=== PATIENT | male | born 1945 | race Caucasian/White ===

== ENCOUNTER 2016-12-06 10:51 | Outpatient (CLI) | payer MEDICARE, OTHER | END 2016-12-06 10:52 | DX: E11.9 Type 2 diabetes mellitus without complications (principal) ==

== ENCOUNTER 2017-01-14 13:15 | Outpatient (CLI) | payer MEDICARE, OTHER ==
[2017-01-14] MEDS ORDERED: ALBUTEROL NEB 2.5 MG/3 ML INH ONE (13:51)
== END 2017-01-14 13:16 | disposition home or self-care (01) ==
DX: R06.00 Dyspnea, unspecified (principal); Z87.891 Personal history of nicotine dependence
CPT/HCPCS: 94060; J7613

== ENCOUNTER 2017-02-13 12:58 | Outpatient (CLI) | payer MEDICARE, OTHER ==
--- NOTE | 2017-02-13 22:09 | MRI Report ---
EXAM: MRI LUMBAR SPINE WITHOUT CONTRAST EXAM DATE: 02/13/2017 01:09 PM. CLINICAL HISTORY: LOW BACK PAIN. COMPARISON: Prior plain film lumbar spine 06/05/2013, prior MRI lumbar spine study 12/20/2011. TECHNIQUE: Multiplanar, multisequence T1-weighted and fluid-sensitive sequences of the lumbar spine f rom T12 to S1 without contrast. Other: None. Findings: Relevant images are indicated (image number, series number). Again seen 5 lmj-bbh-jmibsvq lumbar vertebrae are present. There is no suspicious marrow signal. Agai n seen lower thoracic, lumbar spine dextroscoliosis approximately 24 degrees convex right apex at the L2 level. Conus terminates at L1, no abnormal lumbar cord signal. There is no lumbar paraspinal mass or collection. The visualized bilateral sacroiliac joint demonstrates moderate degenerative changes. Surrounding ske letal muscle unremarkable. Chronic advanced multilevel lower lumbar spine posterior facet bony hypert rophic changes. Also prominent right ventral lateral disk osteophyte extrusion is seen primarily L4-L 5, L5-S1 levels. These were also present previously by MRI lumbar spine 12/20/2011, although appear a t least mildly progressive. Partly seen T11-T12: Mild disk desiccation, no canal stenosis or neural foramina narrowing. T12-L1: Moderate diffuse desiccation, minimal posterior disk bulge without canal stenosis or signific ant neural foraminal narrowing. L1-L2: Moderate to marked degenerative change, small posterior disk osteophyte bulge accentuated at t he foraminal spaces, stenosis. There is moderate left, mild right neural foramina narrowing. L2-L3: disk degenerative change, slight grade 1 retrolisthesis. Mild, moderate Modic type II endplate change. There is moderate canal stenosis, moderate to marked posterior facet degenerative change lef t greater than right. There is marked left, moderate to marked right neural foramina narrowing. There is likely contact left L2 nerve root. The degree of degenerative change appears progressive from MRI lumbar spine 12/20/2011, particularly on the left. L3-L4: Mild to moderate disk desiccation, minimal canal stenosis. Moderate posterior facet degenerati ve change, moderate left and right neural foramina narrowing. L4-L5: Moderate disk desiccation, small posterior disk osteophyte bulge, marked posterior facet degen erative change, appears progressive with ligamentum flavum hypertrophy. Moderate canal stenosis. Ther e is marked left and right neural foramina narrowing also appears similar to very slightly progressiv e in the interval bilaterally. There is suspected contact bilateral L4 nerve roots. L5-S1: Marked degenerative change, moderate Modic type II endplate change. Small posterior broad-base d disk osteophyte complex, no canal stenosis. Moderate, marked posterior facet degenerative change. T here is moderate left, moderate to marked right neural foramina narrowing, appears stable in the inte rval. Remaining upper sacral canal negative. Impressions: 1. Advanced similar to progressive multilevel lower thoracic, lumbar spine spondylosis, superimposed 24 degree lower thoracic, lumbar spine dexterous scoliosis as detailed. No suspicious marrow lesions, no abnormal lumbar cord signal. Advanced multilevel chronic posterior facet hypertrophic changes as detailed, pertinent degenerative levels below. 2. L2-L3: Moderate degenerative canal stenosis, moderate to marked degenerative bilateral neural fora mayra narrowing left worse than right, may contribute a left L2 radiculopathy. 3. L3-L4: Normal degenerative canal stenosis with moderate degenerative bilateral neural foramina leonora rowing, no apparent nerve root contact. 4. L4-L5: Moderate degenerative canal stenosis, marked degenerative bilateral neural foramina narrowi ng similar to slightly progressive in the interval, may contribute bilateral L4 radiculopathy. 5. L5-S1: Moderate to marked degenerative bilateral neural foramina narrowing right greater than left , appears stable in the interval although may contribute a right L5 radiculopathy. 6. Milder or no significant degenerative changes of the remaining lower thoracic, lumbar spine levels as detailed. Comment: The following findings are so common in adults without low back pain that while we report th eir presence, they must be interpreted with caution and in the context of the clinical situation. (Re jayne Jones et al, Spine 2001) Prevalence of findings in patients without low back pain: Disk degeneration (any evidence): 92% Disk desiccation/T2 signal loss: 83% Disk height loss: 56% Disk bulge: 64% Disk protrusion: 32% Annular tear/high intensity zone: 38% [facility] Referring Provider Line: [phone] SITE ID: [id number]
== END 2017-02-13 12:59 | disposition home or self-care (01) ==
LOC: DI 12:58
PROVIDERS: ATTEND Acupuncturist
DX: M48.06 Spinal stenosis, lumbar region (principal); M48.07 Spinal stenosis, lumbosacral region; M47.894 Other spondylosis, thoracic region; M47.896 Other spondylosis, lumbar region; M41.86 Other forms of scoliosis, lumbar region
CPT/HCPCS: 72148

== ENCOUNTER 2017-03-02 10:06 | Outpatient (CLI) | payer MEDICARE, OTHER ==
[2017-03-02 13:19] LABS: BASOPHILS # (AUTO) 0.2 10^3/uL (0.0-0.1); BASOPHILS % (AUTO) 1.8 %; EOSINOPHILS # (AUTO) 0.5 10^3/uL (0.0-0.7); EOSINOPHILS % (AUTO) 5.6 %; HCT - HEMATOCRIT 41.1 % (42.0-52.0); LYMPHOCYTES % (AUTO) 34.2 %; MEAN CORPUSCULAR HEMOGLOBIN 30.3 pg (27.0-31.0); MEAN CORPUSCULAR HGB CONC 34.1 g/dL (32.0-36.0); MEAN CORPUSCULAR VOLUME 88.9 fL (80.0-94.0); MEAN PLATELET VOLUME 9.9 fL (7.4-11.4); MONOCYTES # (AUTO) 0.6 10^3/uL (0.0-1.0); MONOCYTES % (AUTO) 6.8 %; NEUTROPHILS # (AUTO) 4.5 10^3/uL (1.5-6.6); NEUTROPHILS % (AUTO) 51.6 %; RED BLOOD COUNT 4.62 10^6/uL (4.70-6.10); RED CELL DISTRIBUTION WIDTH 13.2 % (12.0-15.0); UNCORRECTED WHITE BLOOD COUNT 8.8 x10^3/uL; WHITE BLOOD COUNT 8.8 x10^3/uL (4.8-10.8)
[2017-03-02 13:43] LABS: ALBUMIN/GLOBULIN RATIO 1.3 (1.0-2.2); BILIRUBIN,TOTAL 0.5 mg/dL (0.2-1.0); BUN - BLOOD UREA NITROGEN 16 mg/dL (6-20); CALCIUM 8.7 mg/dL (8.5-10.3); CARBON DIOXIDE - CO2 26 mmol/L (21-32); CHLORIDE 106 mmol/L (101-111); CHOL/HDL RATIO 4.9 (<5.0); CHOLESTEROL 183 mg/dL; CREATININE 1.4 mg/dL (0.6-1.2); GFR - MDRD 50 (>89); GLUCOSE 158 mg/dL (70-100); HDL CHOLESTEROL 37 mg/dL; LDL/HDL RATIO 2.9 (<3.6); POTASSIUM 4.1 mmol/L (3.5-5.0); SODIUM 140 mmol/L (135-145); TOTAL PROTEIN 6.4 g/dL (6.7-8.2); TRIGLYCERIDES 202 mg/dL; VLDL CHOLESTEROL 40 mg/dL
[2017-03-02 14:15] LABS: HEMOGLOBIN A1C 1.04 g/dL
== END 2017-03-02 10:07 | disposition home or self-care (01) ==
LOC: LAB.WCP 10:06
PROVIDERS: ATTEND Family Medicine
DX: E11.9 Type 2 diabetes mellitus without complications (principal); Z12.5 Encounter for screening for malignant neoplasm of prostate; E03.9 Hypothyroidism, unspecified; N18.9 Chronic kidney disease, unspecified; I25.10 Atherosclerotic heart disease of native coronary artery without angina pectoris; R94.5 Abnormal results of liver function studies; E78.5 Hyperlipidemia, unspecified; I12.9 Hypertensive chronic kidney disease with stage 1 through stage 4 chronic kidney disease, or unspecified chronic kidney disease
CPT/HCPCS: 36415; 80053; 80061; 83036; 85025; G0103; 82043; 84153

== ENCOUNTER 2017-11-20 09:00 | Outpatient (CLI) | payer MEDICARE, OTHER ==
[2017-11-20 13:40] LABS: BILIRUBIN,URINE NEGATIVE (NEGATIVE); GLUCOSE, URINE (UA) 250 mg/dL (NEGATIVE); KETONES,URINE (UA) NEGATIVE (NEGATIVE); LEUKOCYTE ESTERASE, URINE NEGATIVE (NEGATIVE); NITRITE,URINE NEGATIVE (NEGATIVE); OCCULT BLOOD,URINE NEGATIVE (NEGATIVE); PROTEIN,URINE NEGATIVE (NEGATIVE); UROBILINOGEN,URINE 0.2 (NORMAL) E.U./dL (NORMAL)
[2017-11-20 13:41] LABS: CLARITY,URINE CLOUDY (CLEAR)
[2017-11-20 14:07] LABS: RBC,URINE None Seen /HPF (0-5)
[2017-11-20 14:08] LABS: AMORPHOUS SEDIMENT,UR Marked /LPF; BACTERIA,URINE Few /HPF (None Seen); SQUAMOUS EPITHELIAL CELL,UR RARE Squamous (<= Few)
[2017-11-20 14:08] LABS: HB2 TOTAL 16.1 g/dL; HEMOGLOBIN A1C 1.03 g/dL
[2017-11-20 14:14] LABS: ALBUMIN 3.6 g/dL (3.2-5.5); ALBUMIN/GLOBULIN RATIO 1.1 (1.0-2.2); BILIRUBIN,TOTAL 0.6 mg/dL (0.2-1.0); CALCIUM 8.7 mg/dL (8.5-10.3); CREATININE 1.4 mg/dL (0.6-1.2); PHOSPHORUS 3.5 mg/dL (2.5-4.6); TOTAL PROTEIN 6.8 g/dL (6.7-8.2); URIC ACID 6.5 mg/dL (2.6-7.2)
[2017-11-20 14:17] LABS: CHOLESTEROL 170 mg/dL; HDL CHOLESTEROL 34 mg/dL; LDL CHOLESTEROL,CALCULATED 94 mg/dL; LDL/HDL RATIO 2.8 (<3.6); VLDL CHOLESTEROL 42 mg/dL
[2017-11-20 14:47] LABS: BASOPHILS # (AUTO) 0.1 10^3/uL (0.0-0.1); BASOPHILS % (AUTO) 1.1 %; EOSINOPHILS # (AUTO) 0.5 10^3/uL (0.0-0.7); EOSINOPHILS % (AUTO) 5.8 %; HGB - HEMOGLOBIN 14.7 g/dL (14.0-18.0); LYMPHOCYTES # (AUTO) 3.1 10^3/uL (1.5-3.5); LYMPHOCYTES % (AUTO) 37.3 %; MEAN CORPUSCULAR HEMOGLOBIN 30.2 pg (27.0-31.0); MEAN CORPUSCULAR HGB CONC 34.3 g/dL (32.0-36.0); MEAN PLATELET VOLUME 9.8 fL (7.4-11.4); MONOCYTES # (AUTO) 0.8 10^3/uL (0.0-1.0); MONOCYTES % (AUTO) 9.3 %; NEUTROPHILS # (AUTO) 3.9 10^3/uL (1.5-6.6); NEUTROPHILS % (AUTO) 46.5 %; PLT - PLATELET COUNT 218 10^3/uL (130-450); RED BLOOD COUNT 4.87 10^6/uL (4.70-6.10); RED CELL DISTRIBUTION WIDTH 12.9 % (12.0-15.0); WHITE BLOOD COUNT 8.3 x10^3/uL (4.8-10.8)
[2017-11-21 12:36] LABS: HEPATITIS C ANTIBODY NON-REACTIVE (NON-REACTIVE)
[2017-11-21 13:33] LABS: HEPATITIS B SURFACE ANTIGEN NON-REACTIVE (NON-REACTIVE)
== END 2017-11-20 09:01 | disposition home or self-care (01) ==
LOC: LAB.WCP 09:00
PROVIDERS: ATTEND Family Medicine
DX: I12.9 Hypertensive chronic kidney disease with stage 1 through stage 4 chronic kidney disease, or unspecified chronic kidney disease (principal); E11.22 Type 2 diabetes mellitus with diabetic chronic kidney disease; N18.3 Chronic kidney disease, stage 3 (moderate); Z20.5 Contact with and (suspected) exposure to viral hepatitis
CPT/HCPCS: 36415; 80053; 80061; 81001; 82043; 82306; 83036; 83721; 83970; 84100; 84550; 85025; 86803; 87086; 87340; 87389

== ENCOUNTER 2017-12-16 13:12 | Outpatient (CLI) | payer MEDICARE, OTHER ==
--- NOTE | 2017-12-17 11:31 | MRI Report ---
EXAM: MRI LUMBAR SPINE WITHOUT CONTRAST EXAM DATE: 12/16/2017 01:30 PM. CLINICAL HISTORY: 72-year-old with similar history of chronic low back pain radiating into bilateral thighs and legs COMPARISON: MR lumbar spine 02/13/2017. TECHNIQUE: Multiplanar, multisequence T1-weighted and fluid-sensitive sequences of the lumbar spine f rom T12 to S1 without contrast. Other: None. FINDINGS: Spinal Cord: The conus terminates at L1-L2. The conus medullaris and cauda equina are unremarkable. Alignment: There is 18 degrees of dextroconvex scoliotic curvature centered at L2. There is 5 mm of r ight lateral subluxation of L2 on L3. There is 2 mm of grade 1 retrolisthesis of L1 on L2, L2 on L3, L3 on L4, and L5 on S1. Bone Marrow: Five ptw-nxc-qbwscet lumbar vertebral bodies are assumed. No acute fracture. There is Mo dic type II changes seen at L1-L2, L2-L3, and L5-S1. There is endplate edema seen at L1-L2, L2-L3, L3 -L4, and L4-L5 likely degenerative in nature. A vertebral hemangioma is seen. No marrow replacing les ion seen. Disk Levels/Facets: T12-L1: Mild endplate degenerative change, Schmorl's node ridging, mild loss of disk height, and disk desiccation. Small posterior disk bulge and bilateral facet disease. No spinal canal stenosis or ella ral foraminal narrowing. L1-L2: Moderate degenerative change, Schmorl's node compression, moderate loss of disk, and disk santhosh ccation. Small posterior disk bulge, ligamentum flavum thickening, arthritic facet disease, and promi nent dorsal epidural fat. Mild spinal canal stenosis and effacement of the left lateral recess. Mild to moderate bilateral neural foraminal narrowing. L2-L3: Moderate degenerative change, Schmorl's node formation, moderate loss of disk height and disk desiccation. Small posterior disk bulge, ligamentum flavum thickening, arthritic facet disease, and p rominent dorsal epidural fat. Moderate spinal canal stenosis. Moderate right and severe left neural f oraminal narrowing. L3-L4: Mild loss of disk height and disk desiccation. Small posterior disk bulge, ligamentum flavum t hickening, arthritic facet disease, and prominent dorsal epidural fat. Mild spinal canal stenosis. Mi ld to moderate bilateral neural foramina narrowing. L4-L5: Mild endplate degenerative change, Schmorl's node formation, mild loss of disk height, and dis k desiccation. Small posterior disk bulge, ligamentum flavum thickening, facet disease, and prominent dorsal epidural fat. Mild to moderate spinal canal stenosis and effacement of the lateral recesses. Severe right and moderate left neural foraminal narrowing. L5-S1: Mild endplate degenerative change, Schmorl's node formation, moderate loss of disk height, and disk desiccation. Small central disk protrusion. Bilateral arthritic facet disease. Effacement of th e recesses with contact of the bilateral S1 nerve roots, greater on the left. Mild to moderate bilate ral neural foraminal narrowing. Musculature: Mild fatty atrophy of the multifidus muscles. Severe edema within the subcutaneous tissu es of the low back. Other: The partially visualized retroperitoneum is unremarkable. Dilatation of the right common iliac artery measuring up to 19.5 mm similar to 02/13/2017. IMPRESSION: 1. There is 18 degrees of dextroconvex scoliotic curvature centered at L2. There is 5 mm of right lat eral subluxation of L2 on L3. 2. There is 2 mm of grade 1 retrolisthesis of L1 on L2, L2 on L3, L3 on L4, and L5 on S1. 3. Multilevel degenerative changes that appear similar to MRI 02/13/2017. L1-L2: Mild spinal canal stenosis and effacement of the left lateral recess. Mild to moderate bilater al neural foraminal narrowing. L2-L3: Moderate spinal canal stenosis. Moderate right and severe left neural foraminal narrowing. L3-L4: Mild spinal canal stenosis. Mild to moderate bilateral neural foramina narrowing. L4-L5: Mild to moderate spinal canal stenosis and effacement of the lateral recesses. Severe right an d moderate left neural foraminal narrowing. L5-S1: Effacement of the recesses with contact of the bilateral S1 nerve roots, greater on the left. Mild to moderate bilateral neural foraminal narrowing. 4. Enlargement of the right common iliac artery measuring up to 19.5 mm similar to 02/13/2017. Comment: The following findings are so common in adults without low back pain that while we report th eir presence, they must be interpreted with caution and in the context of the clinical situation. (Re jayne Jones et al, Spine 2001) Prevalence of findings in patients without low back pain: Disk degeneration (any evidence): 92% Disk desiccation/T2 signal loss: 83% Disk height loss: 56% Disk bulge: 64% Disk protrusion: 32% Annular tear/high intensity zone: 38% [facility] Referring Provider Line: [phone] SITE ID: [id number]
== END 2017-12-16 13:13 | disposition home or self-care (01) ==
LOC: DI 13:12
PROVIDERS: ATTEND Neurological Surgery
DX: M51.36 Other intervertebral disc degeneration, lumbar region (principal); M47.896 Other spondylosis, lumbar region; M41.86 Other forms of scoliosis, lumbar region; M51.46 Schmorl's nodes, lumbar region; M43.16 Spondylolisthesis, lumbar region
CPT/HCPCS: 72148

== ENCOUNTER 2018-04-13 15:26 | Outpatient (CLI) | payer MEDICARE, OTHER ==
--- NOTE | 2018-04-13 18:11 | Ultrasound Report ---
Procedure Date: 04/13/2018 Accession Number: [id number] / [id number] Procedure: US - Duplex Ext Veins Right CPT Code: FULL RESULT: EXAM: RIGHT LOWER EXTREMITY VENOUS ULTRASOUND EXAM DATE: 04/13/2018 05:46 PM. CLINICAL HISTORY: RT LEG PAIN AND SWELLING. COMPARISON: None. TECHNIQUE: Real-time sonographic vascular imaging was performed by the silk folder through the lower extremity utilizing both color-flow and Doppler spectral analysis. Multiple dental detail representative static images were saved for review. FINDINGS: Common Femoral Vein (CFV): Normal. CFV-GSV Junction: Normal. Profunda Femoral Vein (PFV): Normal. Femoral Vein (FV) Prox: Normal. Femoral Vein (FV) Mid: Normal. Femoral Vein (FV) Dist: Normal. Popliteal Vein: Normal. Posterior Tibial Veins: Normal. Peroneal Veins: Normal. Contralateral Side CFV: Normal. Other: There is a small right popliteal fossa cyst measuring 2.4 x 0.7 x 1.1 cm. IMPRESSION: No evidence for deep venous thrombosis. [facility]
== END 2018-04-13 15:27 | disposition home or self-care (01) ==
LOC: DI 15:26
PROVIDERS: ATTEND Physician Assistant
DX: M79.604 Pain in right leg (principal)

== ENCOUNTER 2018-06-13 15:00 | Outpatient (CLI) | payer MEDICARE, OTHER ==
--- NOTE | 2018-06-14 16:57 | Ultrasound Report ---
Reason: LEG PAIN, RIGHT Procedure Date: 06/13/2018 Accession Number: [id number] / [id number] Procedure: US - Ankle Brachial Index CPT Code: FULL RESULT: EXAM: ANKLE BRACHIAL INDEX. EXAM DATE: 06/13/2018 04:59 PM. CLINICAL HISTORY: Leg pain, right. COMPARISON: None. TECHNIQUE: Duplex Doppler. FINDINGS: On the right side, posterior tibial peak systolic velocity is 80.4 cm/s, waveform is biphasic. Dorsalis pedis peak systolic velocity is 80.4, waveform is biphasic. On the left side posterior tibial peak systolic velocity is 101.4, waveform is biphasic. The dorsalis pedis peak systolic velocity is 77.3, with a monophasic waveform. On the right side the brachial artery systolic pressure is 129 in the posterior tibial artery pressure is 129. The ankle arm index is 1.0. On the left side brachial artery pressure is 135, and the posterior tibial is 119. The ankle arm index is 0.88. IMPRESSION: 1. Right side ankle brachial index is 1.0. 2. Left side ankle brachial index is 0.88. [facility]
== END 2018-06-13 15:01 | disposition home or self-care (01) ==
LOC: DI 15:00
PROVIDERS: ATTEND Family Medicine
DX: M79.604 Pain in right leg (principal)
CPT/HCPCS: 93922

== ENCOUNTER 2019-04-17 08:00 | Outpatient (CLI) | payer MEDICARE, OTHER ==
[2019-04-17 12:39] LABS: BASOPHILS # (AUTO) 0.1 10^3/uL (0.0-0.1); BASOPHILS % (AUTO) 1.4 %; EOSINOPHILS # (AUTO) 0.4 10^3/uL (0.0-0.7); EOSINOPHILS % (AUTO) 4.3 %; LYMPHOCYTES # (AUTO) 3.4 10^3/uL (1.5-3.5); LYMPHOCYTES % (AUTO) 36.5 %; MEAN CORPUSCULAR HEMOGLOBIN 29.5 pg (27.0-31.0); MEAN CORPUSCULAR HGB CONC 32.2 g/dL (32.0-36.0); MEAN CORPUSCULAR VOLUME 91.8 fL (80.0-94.0); MONOCYTES # (AUTO) 0.7 10^3/uL (0.0-1.0); MONOCYTES % (AUTO) 7.6 %; NEUTROPHILS # (AUTO) 4.6 10^3/uL (1.5-6.6); NEUTROPHILS % (AUTO) 49.8 %; PLT - PLATELET COUNT 212 10^3/uL (130-450); RED BLOOD COUNT 4.74 10^6/uL (4.70-6.10); RED CELL DISTRIBUTION WIDTH 13.1 % (12.0-15.0); WHITE BLOOD COUNT 9.3 x10^3/uL (4.8-10.8)
[2019-04-17 13:48] LABS: BUN - BLOOD UREA NITROGEN 18 mg/dL (6-20); CALCIUM 9.1 mg/dL (8.5-10.3); CARBON DIOXIDE - CO2 28 mmol/L (21-32); CHLORIDE 107 mmol/L (101-111); CREATININE 1.5 mg/dL (0.6-1.2); GFR - MDRD 46 (>89); GLUCOSE 109 mg/dL (70-100); SODIUM 145 mmol/L (135-145)
[2019-04-17 13:49] LABS: ALBUMIN 3.7 g/dL (3.2-5.5); ALBUMIN/GLOBULIN RATIO 1.2 (1.0-2.2); ALKALINE PHOSPHATASE 74 IU/L (42-121); ALT ALANINE AMINOTRANSFERASE 46 IU/L (10-60); AST ASPARTATE AMINOTRANSFERASE 44 IU/L (10-42); BILIRUBIN,TOTAL 0.5 mg/dL (0.2-1.0); CHOL/HDL RATIO 3.7 (<5.0); CHOLESTEROL 143 mg/dL; HDL CHOLESTEROL 39 mg/dL; LDL CHOLESTEROL,CALCULATED 67 mg/dL; LDL/HDL RATIO 1.7 (<3.6); TOTAL PROTEIN 6.7 g/dL (6.7-8.2); VLDL CHOLESTEROL 37 mg/dL
== END 2019-04-17 23:59 | disposition home or self-care (01) ==
LOC: LAB.N 08:00
PROVIDERS: ATTEND Family Medicine
DX: I10 Essential (primary) hypertension (principal); E78.5 Hyperlipidemia, unspecified; E03.9 Hypothyroidism, unspecified
CPT/HCPCS: 36415; 80053; 80061; 83721; 84443; 85025

== ENCOUNTER 2019-04-24 08:00 | Outpatient (CLI) | payer MEDICARE, OTHER ==
[2019-04-24 19:16] LABS: THYROID STIMULATING HORMONE 3.21 uIU/mL (0.34-5.60)
[2019-04-24 19:18] LABS: FREE T4 (FREE THYROXINE) 0.99 ng/dL (0.58-1.64)
== END 2019-04-24 08:01 | disposition home or self-care (01) ==
LOC: LAB.N 08:00
PROVIDERS: ATTEND Family Medicine
DX: R94.6 Abnormal results of thyroid function studies (principal)
CPT/HCPCS: 36415; 84439; 84443; 84481; 86800

== ENCOUNTER 2019-06-14 14:30 | Outpatient (CLI) | payer MEDICARE, OTHER ==
[2019-06-14 20:12] LABS: HB2 TOTAL 14.2 g/dL; HEMOGLOBIN A1C 0.65 g/dL; HEMOGLOBIN A1C % 6.3 % (4.6-6.2)
== END 2019-06-14 14:40 | disposition home or self-care (01) ==
LOC: LAB.N 14:30
PROVIDERS: ATTEND Neurological Surgery
DX: Z01.812 Encounter for preprocedural laboratory examination (principal); E11.9 Type 2 diabetes mellitus without complications
CPT/HCPCS: 36415; 83036

== ENCOUNTER 2019-11-06 12:51 | Outpatient (CLI) | payer MEDICARE, OTHER ==
[~2019-11-06 12:51] MED LIST: ALBUTEROL NEB 2.5 MG/3 ML INH SCH
== END 2019-11-06 12:52 | disposition home or self-care (01) ==
LOC: RT 12:51
PROVIDERS: ATTEND Internal Medicine Pulmonary Disease
DX: R06.09 Other forms of dyspnea (principal)
CPT/HCPCS: 94060; 94729

== ENCOUNTER 2019-11-15 04:16 | Outpatient (CLI) | payer MEDICARE, OTHER | END 2019-11-15 04:17 | disposition critical access hospital (66) | LOC: EMS 04:16 | PROVIDERS: ATTEND Surgery | DX: R04.0 Epistaxis (principal) | CPT/HCPCS: A0425; A0429 ==

== ENCOUNTER 2019-11-15 04:32 | Emergency (ER) | payer MEDICARE, OTHER ==
[2019-11-15] MEDS ORDERED: SODIUM CHLORIDE 0.9% NAS STA (04:46)
[2019-11-15] MEDS ORDERED: OXYMETAZOLINE HCL 100 SPRAYS BOTTLE NAS STA (04:46)
[2019-11-15] MEDS ORDERED: TRANEXAMIC ACID NAS STA (04:46)
--- NOTE | 2019-11-15 05:16 | ED Physician Documentation ---
History of Present Illness - Stated complaint Stated Complaint: NOSEBLEED - Chief complaint Chief Complaint: Heent - Additonal information Additional information: This is a 73-year-old male who presents with nosebleed. Patient has a history of diabetes, he takes an aspirin daily. He states that the bleeding began around 330, and he held some pressure but it continued. He had a nosebleed several days in the past and ended up having have a Rhino Rocket placed after cautery failed. He denies other easy bleeding or bruising or any other blood thinners Other than aspirin. PD PAST MEDICAL HISTORY - Past Medical History Past Medical History: Yes Cardiovascular: Hypertension Respiratory: None Endocrine/Autoimmune: Type 2 diabetes HEENT: None Psych: None Musculoskeletal: Chronic back pain Derm: None - Past Surgical History Past Surgical History: Yes Cardiovascular: Coronary stent - Present Medications Home Medications: Ambulatory Orders Medication Instructions Recorded Confirmed Aspirin 81 mg PO DAILY 10/23/13 11/15/19 Celecoxib [Celebrex] 100 mg PO DAILY 10/23/13 11/15/19 L. Rhamnosus GG/Inulin [Culturelle 1 each PO DAILY #14 cap.sprink 10/23/13 11/15/19 Capsule] Lisinopril 20 mg PO DAILY 10/23/13 11/15/19 Metformin HCl [Glumetza] 500 mg PO BID 10/23/13 11/15/19 Naproxen 250 mg PO DAILY PRN 10/23/13 11/15/19 Simvastatin 40 mg PO DAILY 10/23/13 11/15/19 Sitagliptin Phosphate [Januvia] 100 mg PO DAILY 10/23/13 11/15/19 - Allergies Allergies/Adverse Reactions: Allergies Allergy/AdvReac Type Severity Reaction Status Date / Time No Known Drug Allergies Allergy Verified 11/15/19 04:47 - Social History Does the pt smoke?: No Smoking Status: Never smoker Does the pt drink ETOH?: No Does the pt have substance abuse?: No - Immunizations Immunizations are current?: No - POLST Patient has POLST: No PD ED PE NORMAL - General General: Alert and oriented X 3 - HEENT HEENT: Other (Nose clamps in place, when they remove there is a trickle of blood from the left nostril. This remained steady until pressure is reapplied. Face is atraumatic.) - Neck Neck: Supple, no meningeal sign - Cardiac Cardiac: RRR, Other (Rate in the 90s to low 100s on my examination.) - Respiratory Respiratory: No respiratory distress, Other (Upper airway noises, otherwise clear to) - Abdomen Abdomen: Soft, Non tender, Non distended - Extremities Extremities: No deformity - Neuro Neuro: Alert and oriented X 3 - Psych Psych: Normal mood, Normal affect Results - Vitals Vitals: Vital Signs - 24 hr 11/15/19 11/15/19 11/15/19 04:36 04:47 05:09 Temperature 37.1 C Heart Rate 103 H 95 91 Respiratory 16 18 18 Rate Blood Pressure 171/76 H 179/69 H 154/62 H O2 Saturation 95 94 94 11/15/19 11/15/19 11/15/19 05:28 06:06 06:55 Temperature 36.7 C Heart Rate 85 79 79 Respiratory 16 16 16 Rate Blood Pressure 155/68 H 158/78 H 174/74 H O2 Saturation 94 94 97 Oxygen O2 Source Room air PD MEDICAL DECISION MAKING - ED course ED course: On arrival patient has ongoing bleeding from his nose, despite having nose clamps which are somewhat sliding out of place. 2 sprays of afrin were placed in each nostril and then a piece of foam anterior packing was wet with 3 mL of TXA solution and placed into the left nostril. Nose clamps were reapplied. After 20 minutes they were removed with very good hemostasis. Pt was observed for 45 minutes without any packing or clamps in place and continued to have no bleeding. He has no symptoms to suggest more nefarious cause of his epistaxis - no other bleeding, no easy bruising, no fevers or night sweats. I discussed care for recurrent bleeds, return precautions, and outpatient follow up and pt was discharged home in good condition. Departure - Departure Disposition: 01 Home, Self Care Clinical Impression: Epistaxis Condition: Good Instructions: ED Nosebleed Follow-Up: ISH RODRIGUEZ MD [Primary Care Provider] - Comments: You were seen today for nosebleed. I am glad that it has stopped. If you have recurrence of the bleed, please place 2 sprays of the Afrin up both nostrils, and then apply the nose clamps for 20 minutes without any disruption of that pressure. If it continues to bleed or if the bleeding is profuse return to the emergency department. Try not to pick at or touch your nose, especially in the next couple days, as you are at higher risk for causing recurrent bleeding. You may use a saline type spray or thin layer of Vaseline just inside the nostrils to help keep the nasal lining moist and prevent bleeding. Discharge Date/Time: 11/15/19 06:59
[2019-11-15 06:59] VITALS: BP 174/74
== END 2019-11-15 06:59 | disposition home or self-care (01) ==
LOC: EDUNIT# → ED 04:32
DX: R04.0 Epistaxis (principal); E11.9 Type 2 diabetes mellitus without complications; I10 Essential (primary) hypertension; G89.29 Other chronic pain; M54.9 Dorsalgia, unspecified; Z95.5 Presence of coronary angioplasty implant and graft; Z79.1 Long term (current) use of non-steroidal anti-inflammatories (NSAID); Z79.82 Long term (current) use of aspirin; Z79.84 Long term (current) use of oral hypoglycemic drugs
CPT/HCPCS: 99281; 99283; A9270

== ENCOUNTER 2019-11-27 10:58 | Outpatient (CLI) | payer MEDICARE, OTHER ==
--- NOTE | 2019-11-27 16:47 | XRAY Report ---
Reason: LOW BACK PAIN Procedure Date: 11/27/2019 Accession Number: [id number] / [id number] Procedure: XRN - Lumbar Spine Complete CPT Code: Final Report FULL RESULT: EXAM: LUMBOSACRAL SPINE RADIOGRAPHY EXAM DATE: 11/27/2019 11:33 AM. CLINICAL HISTORY: Low back pain. COMPARISONS: XR LUMBAR SPINE COMPLETE 06/05/2013, MRI LUMBAR SPINE W/O 12/16/2017, XR LUMBOSACRAL SPINE 4 VIEWS 12/20/2011. TECHNIQUE: 5 views. FINDINGS: Alignment: Compared to the radiographs in 2011 there has been interval progression of the dextroconvex thoracolumbar scoliosis centered about L1-L2, now 19 degrees followed by 10 degrees of levoconvex lumbar scoliosis centered about L4-L5. Comparison of the same to the 2018 MRI is somewhat limited, subjectively progressed. No listhesis. Bones: Five jmn-pjx-orozpep lumbar vertebral bodies are present. No fractures or bone lesions. Disks: Partial loss of disk space height is most pronounced at the apex of the scoliosis. Facets: Multilevel facet arthropathy is again seen most pronounced in the lower lumbar spine. Sacroiliac Joints: Unremarkable. Soft Tissues: Aortic atherosclerosis is noted. The visualized bowel gas pattern is normal. IMPRESSION: Degenerative changes include progression of scoliosis as described. [facility]
--- NOTE | 2019-11-27 16:49 | XRAY Report ---
Reason: HIP JOINT PAIN Procedure Date: 11/27/2019 Accession Number: [id number] / [id number] Procedure: XRN - Hip w/Pelvis 2-3V RT CPT Code: Final Report FULL RESULT: EXAM: RIGHT HIP RADIOGRAPHY EXAM DATE: 11/27/2019 11:33 AM. CLINICAL HISTORY: Right hip pain for 24 hours. COMPARISON: LUMBAR SPINE COMPLETE 11/27/2019 11:20 AM, XR LUMBOSACRAL SPINE 4 VIEWS 12/20/2011 10:54 AM. TECHNIQUE: 2 views of the right hip and an AP pelvis. FINDINGS: Examination is limited by underpenetration related to body habitus. Bones: Normal. No fractures or bone lesion. Joints: Within limitations of the examination there is mild joint space narrowing of the hip joints bilaterally with marginal osteophytosis right greater than left. There is no dislocation. Soft Tissues: Normal. No soft tissue swelling. IMPRESSION: Degenerative changes without fracture identified, limited exam. [facility]
== END 2019-11-27 10:59 | disposition home or self-care (01) ==
LOC: DI.N 10:58
PROVIDERS: ATTEND Family Medicine
DX: M51.36 Other intervertebral disc degeneration, lumbar region (principal); M41.86 Other forms of scoliosis, lumbar region; M16.11 Unilateral primary osteoarthritis, right hip
CPT/HCPCS: 72110

== ENCOUNTER 2020-01-08 16:24 | Outpatient (CLI) | payer MEDICARE, OTHER | END 2020-01-08 16:25 | disposition home or self-care (01) | LOC: DI 16:24 | PROVIDERS: ATTEND Family Medicine | DX: Z53.9 Procedure and treatment not carried out, unspecified reason (principal) ==

== ENCOUNTER 2021-05-07 11:43 | Outpatient (CLI) | payer MEDICARE, OTHER ==
[2021-05-07 18:37] LABS: BASOPHILS # (AUTO) 0.1 10^3/uL (0.0-0.1); BASOPHILS % (AUTO) 1.2 %; EOSINOPHILS # (AUTO) 0.3 10^3/uL (0.0-0.7); EOSINOPHILS % (AUTO) 4.8 %; LYMPHOCYTES # (AUTO) 0.8 10^3/uL (1.5-3.5); LYMPHOCYTES % (AUTO) 14.1 %; MEAN CORPUSCULAR HEMOGLOBIN 17.3 pg (27.0-31.0); MEAN CORPUSCULAR HGB CONC 25.3 g/dL (32.0-36.0); MEAN CORPUSCULAR VOLUME 68.3 fL (80.0-94.0); MONOCYTES # (AUTO) 0.5 10^3/uL (0.0-1.0); MONOCYTES % (AUTO) 8.2 %; NEUTROPHILS # (AUTO) 4.2 10^3/uL (1.5-6.6); NEUTROPHILS % (AUTO) 71.2 %; PLT - PLATELET COUNT 309 10^3/uL (130-450); RED BLOOD COUNT 2.84 10^6/uL (4.70-6.10); RED CELL DISTRIBUTION WIDTH 20.9 % (12.0-15.0); WHITE BLOOD COUNT 5.9 x10^3/uL (4.8-10.8)
[2021-05-07 19:16] LABS: HCT - HEMATOCRIT 19.4 % (42.0-52.0); HGB - HEMOGLOBIN 4.9 g/dL (14.0-18.0); PLATELET ESTIMATE, MANUAL NORMAL (130-450,000) (NORMAL); PLATELET MORPHOLOGY NORMAL APPEARANCE (NORMAL); SLIDE REVIEW? Indicated; WBC MORPHOLOGY (MULTIPLE) NORMAL APPEARANCE (NORMAL)
[2021-05-07 19:17] LABS: RBC MORPHOLOGY (MULTIPLE) 3+ HYPOCHROMASIA (NORMAL)
[2021-05-07 19:35] LABS: ALT ALANINE AMINOTRANSFERASE 12 IU/L (10-60); BUN - BLOOD UREA NITROGEN 13 mg/dL (6-20); CALCIUM 9.1 mg/dL (8.5-10.3); CARBON DIOXIDE - CO2 21 mmol/L (21-32); CHLORIDE 109 mmol/L (101-111); CHOL/HDL RATIO 4.1 (<5.0); CHOLESTEROL 156 mg/dL; CREATININE 1.1 mg/dL (0.6-1.2); GFR - MDRD 65 (>89); GLUCOSE 151 mg/dL (70-100); HDL CHOLESTEROL 38 mg/dL; IRON < 6 ug/dL (45-182); LDL CHOLESTEROL,CALCULATED 94 mg/dL; LDL/HDL RATIO 2.5 (<3.6); POTASSIUM 4.1 mmol/L (3.5-5.0); SODIUM 144 mmol/L (135-145); TOTAL IRON BINDING CAPACITY 403 ug/dL (250-450); TRANSFERRIN 288 mg/dL (180-329); TRIGLYCERIDES 118 mg/dL; VLDL CHOLESTEROL 24 mg/dL
[2021-05-07 20:36] LABS: ESTIMATED AVERAGE GLUCOSE 123 mg/dL (70-100); HEMOGLOBIN A1c% 5.9 % (4.27-6.07)
== END 2021-05-07 23:59 | disposition home or self-care (01) ==
LOC: LAB.WCP 11:43
PROVIDERS: ATTEND Internal Medicine
DX: E11.42 Type 2 diabetes mellitus with diabetic polyneuropathy (principal); D64.9 Anemia, unspecified
CPT/HCPCS: 36415; 80048; 80061; 82043; 82570; 82728; 83036; 83540; 83721; 84460; 84466; 85025

== ENCOUNTER 2021-05-07 20:01 | Inpatient (IN) | payer MEDICARE, OTHER ==
--- NOTE | 2021-05-07 20:32 | ED Physician Documentation ---
History of Present Illness - Stated complaint Stated Complaint: INFUSION - Chief complaint Chief Complaint: General - History obtained from History obtained from: Patient - Additonal information Additional information: 75-year-old gentleman with history of chronic kidney disease, coronary disease with stents in place has not been seen in about a year. He has been short of breath for months and having some weak episodes for months where he falls but does not lose consciousness. He scheduled a routine appointment and had routine blood work done today and was referred to the emergency department for a hemoglobin of 4.9 and a hematocrit of 19.4. He has a history of chronic kidney disease, but on labs earlier today his creatinine was 1.1. He denies dark or tarry stools. Last colonoscopy was well over 10 years ago without pertinent positive findings though. PD PAST MEDICAL HISTORY - Past Medical History Cardiovascular: Hypertension Respiratory: None Endocrine/Autoimmune: Type 2 diabetes HEENT: None Psych: None Musculoskeletal: Chronic back pain Derm: None - Past Surgical History Past Surgical History: Yes Ortho: Spine surgery Cardiovascular: Coronary stent - Present Medications Home Medications: Ambulatory Orders Medication Instructions Recorded Confirmed Aspirin 81 mg PO DAILY 10/23/13 05/01/20 Lisinopril 10 mg PO DAILY 10/23/13 05/01/20 Albuterol Sulfate [Albuterol 2 puffs INH DAILY PRN 05/01/20 05/01/20 Sulfate Hfa] Celecoxib 200 mg PO DAILY 05/01/20 05/01/20 Cholecalciferol (Vitamin D3) 1,000 unit PO DAILY 05/01/20 05/01/20 [Vitamin D3] Hydrocodone/Acetaminophen 1 tab PO Q6H PRN 05/01/20 05/01/20 [Hydrocodone-Acetamin 7.5-325] Insulin Aspart [Insulin Aspart 12 - 15 unit SQ QDDINNER 05/01/20 05/01/20 Flexpen] Insulin Glargine [Lantus] 31 unit SUBQ QPM 05/01/20 05/01/20 Metformin HCl 500 mg PO BID 05/01/20 05/01/20 Pantoprazole Sodium [Protonix] 40 mg PO DAILY 05/01/20 05/01/20 Cyanocobalamin [Vitamin B-12] 1,000 mcg PO DAILY #60 tablet 05/04/20 Gabapentin [Neurontin] 300 mg PO HS 05/07/21 05/07/21 Rosuvastatin Calcium [Crestor] 20 mg PO 05/07/21 - Allergies Allergies/Adverse Reactions: Allergies Allergy/AdvReac Type Severity Reaction Status Date / Time No Known Drug Allergies Allergy Verified 05/07/21 20:08 - Social History Does the pt smoke?: No Smoking Status: Former smoker Does the pt drink ETOH?: No Does the pt have substance abuse?: No - Immunizations Immunizations are current?: No - POLST Patient has POLST: No Results - Vitals Vitals: Vital Signs - 24 hr 05/07/21 05/07/21 20:03 20:41 Temperature 36.9 C Heart Rate 111 H 113 H Respiratory 16 17 Rate Blood Pressure 145/65 H 148/56 H O2 Saturation 98 99 Oxygen O2 Source Room air - Labs Labs: Microbiology 05/07/21 20:48 Occult Blood - Final Stool Laboratory Tests 05/07/21 05/07/21 05/07/21 11:43 20:30 20:30 WBC 7.7 RBC 2.90 L Hgb 5.1 L* Hct 19.1 L* MCV 65.9 L MCH 17.6 L MCHC 26.7 L RDW 20.5 H Plt Count 316 MPV 9.6 Neut # (Auto) 5.1 Lymph # (Auto) 1.5 [place] # (Auto) 0.7 Eos # (Auto) 0.3 Baso # (Auto) 0.1 Absolute Nucleated RBC 0.02 Nucleated RBC % 0.3 Manual Slide Review Indicated WBC Morphology NORMAL APPEARANCE Platelet Estimate NORMAL (130-450,000) Platelet Morphology NORMAL APPEARANCE RBC Morph Micro Appear 3+ HYPOCHROMASIA PT INR Sodium Potassium Chloride Carbon Dioxide Anion Gap BUN Creatinine Estimated GFR (MDRD) Glucose Calcium Iron TIBC Transferrin Blood Type B POSITIVE Blood Type Recheck B POSITIVE Antibody Screen NEGATIVE Crossmatch IS Only See Detail 05/07/21 05/07/21 20:30 20:30 WBC RBC Hgb Hct MCV MCH MCHC RDW Plt Count MPV Neut # (Auto) Lymph # (Auto) [place] # (Auto) Eos # (Auto) Baso # (Auto) Absolute Nucleated RBC Nucleated RBC % Manual Slide Review WBC Morphology Platelet Estimate Platelet Morphology RBC Morph Micro Appear PT 14.2 H INR 1.3 H Sodium 144 Potassium 4.0 Chloride 109 Carbon Dioxide 23 Anion Gap 12.0 BUN 13 Creatinine 1.0 Estimated GFR (MDRD) 72 L Glucose 109 H Calcium 9.1 Iron < 6 L TIBC 435 Transferrin 311 Blood Type Blood Type Recheck Antibody Screen Crossmatch IS Only PD MEDICAL DECISION MAKING - ED course ED course: 75-year-old gentleman with history of coronary disease has very symptomatic anemia although by history is kind of subacute. He is tachycardic here but note made on the monitor that he is having a lot of supraventricular ectopy. Lungs are clear otherwise. He does not appear fluid overloaded. He is guaiac positive on exam. Case discussed by phone with our surgeon, Dr. Alfonso who plans to consult and scope on Monday if stabilized at that time. Spoke with Dr. Spann for admission at 9:26 PM. 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
[2021-05-07 20:39] LABS: BASOPHILS # (AUTO) 0.1 10^3/uL (0.0-0.1); BASOPHILS % (AUTO) 0.8 %; EOSINOPHILS # (AUTO) 0.3 10^3/uL (0.0-0.7); EOSINOPHILS % (AUTO) 3.7 %; LYMPHOCYTES # (AUTO) 1.5 10^3/uL (1.5-3.5); LYMPHOCYTES % (AUTO) 19.8 %; MEAN CORPUSCULAR HEMOGLOBIN 17.6 pg (27.0-31.0); MEAN CORPUSCULAR HGB CONC 26.7 g/dL (32.0-36.0); MEAN CORPUSCULAR VOLUME 65.9 fL (80.0-94.0); MEAN PLATELET VOLUME 9.6 fL (7.4-11.4); MONOCYTES # (AUTO) 0.7 10^3/uL (0.0-1.0); MONOCYTES % (AUTO) 9.3 %; NEUTROPHILS # (AUTO) 5.1 10^3/uL (1.5-6.6); NRBC ABSOLUTE COUNT (AUTO) 0.02 x10^3/uL; NUCLEATED RED BLOOD CELLS AUTO 0.3 /100WBC; PLT - PLATELET COUNT 316 10^3/uL (130-450); RED CELL DISTRIBUTION WIDTH 20.5 % (12.0-15.0); WHITE BLOOD COUNT 7.7 x10^3/uL (4.8-10.8)
[2021-05-07 20:43] LABS: HCT - HEMATOCRIT 19.1 % (42.0-52.0); HGB - HEMOGLOBIN 5.1 g/dL (14.0-18.0); SLIDE REVIEW? Indicated
[2021-05-07 20:44] LABS: PLATELET ESTIMATE, MANUAL NORMAL (130-450,000) (NORMAL); PLATELET MORPHOLOGY NORMAL APPEARANCE (NORMAL); RBC MORPHOLOGY (MULTIPLE) 3+ HYPOCHROMASIA (NORMAL); WBC MORPHOLOGY (MULTIPLE) NORMAL APPEARANCE (NORMAL)
[2021-05-07 20:45] LABS: INR 1.3 (0.8-1.2); PT - PROTHROMBIN TIME 14.2 secs (9.9-12.6)
[2021-05-07 21:01] LABS: BUN - BLOOD UREA NITROGEN 13 mg/dL (6-20); CALCIUM 9.1 mg/dL (8.5-10.3); CARBON DIOXIDE - CO2 23 mmol/L (21-32); CHLORIDE 109 mmol/L (101-111); GFR - MDRD 72 (>89); GLUCOSE 109 mg/dL (70-100); IRON < 6 ug/dL (45-182); SODIUM 144 mmol/L (135-145); TOTAL IRON BINDING CAPACITY 435 ug/dL (250-450); TRANSFERRIN 311 mg/dL (180-329)
[2021-05-07] MEDS ORDERED: PANTOPRAZOLE 40 MG VIAL IVP STA (21:09)
[2021-05-07] MEDS ORDERED: SODIUM CHLORIDE FLUSH 0.9% 10 ML SYRINGE IVP PRN (21:26)
[2021-05-07] MEDS ORDERED: ONDANSETRON 4 MG/2 ML VIAL IVP PRN (21:26)
--- NOTE | 2021-05-07 21:32 | HISTORY & PHYSICAL EXAMINATION ---
Chief Complaint - Chief Complaint Chief Complaint: anemia History of Present Illness - Admitted From Admitted From:: [facility] ED - History Obtained From Records Reviewed: yes History obtained from: patient - History of Present Illness HPI Comment/Other: Patient is a 75-year-old male who presented to the ED at the request of his primary care physician's office. He had routine lab work done today which showed a hemoglobin of 5.1. As a result he was advised to present to the ED for potential blood transfusion. He reports significant dyspnea on exertion and tachycardia. He denies abdominal pain, nausea, vomiting, dizziness, lightheadedness, fever or chills. He reports frequent falls for which he uses a walker to get around. In the ED he was noted to be guaiac positive. He reports a 50lb unintentional weight loss in the past year. His last colonoscopy was 17 years ago. His medical history is significant for chronic back pain, Hypertension, diabetes mellitus type 2, coronary artery disease. History - Past Medical History Cardiovascular: reports: Hypertension Respiratory: reports: None Endocrine/Autoimmune: reports: Type 2 diabetes HEENT: reports: None Psych: reports: None Musculoskeletal: reports: Chronic back pain Derm: reports: None MRSA Hx?: No Other Past Medical History: Prostate Cancer - Past Surgical History Ortho: reports: Spine surgery Cardiovascular: reports: Coronary stent - Family & Social History Family History: Mother: , Father: Family History Comment/Other: Patient reported that his parents are , his father from heart attack, his mother of diabetes and stroke complication. 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 He lives in [place], [place]. He denies smoking, alcohol and drug history. - POLST Patient has POLST: No POLST Status: Full Code Meds/Allgy - Home Medications Home Medications: Ambulatory Orders Medication Instructions Recorded Confirmed Aspirin 81 mg PO DAILY 10/23/13 05/01/20 Lisinopril 10 mg PO DAILY 10/23/13 05/01/20 Albuterol Sulfate [Albuterol 2 puffs INH DAILY PRN 05/01/20 05/01/20 Sulfate Hfa] Celecoxib 200 mg PO DAILY 05/01/20 05/01/20 Cholecalciferol (Vitamin D3) 1,000 unit PO DAILY 05/01/20 05/01/20 [Vitamin D3] Hydrocodone/Acetaminophen 1 tab PO Q6H PRN 05/01/20 05/01/20 [Hydrocodone-Acetamin 7.5-325] Insulin Aspart [Insulin Aspart 12 - 15 unit SQ QDDINNER 05/01/20 05/01/20 Flexpen] Insulin Glargine [Lantus] 31 unit SUBQ QPM 05/01/20 05/01/20 Metformin HCl 500 mg PO BID 05/01/20 05/01/20 Pantoprazole Sodium [Protonix] 40 mg PO DAILY 05/01/20 05/01/20 Cyanocobalamin [Vitamin B-12] 1,000 mcg PO DAILY #60 tablet 05/04/20 Gabapentin [Neurontin] 300 mg PO HS 05/07/21 05/07/21 Rosuvastatin Calcium [Crestor] 20 mg PO 05/07/21 - Allergies Allergies/Adverse Reactions: Allergies Allergy/AdvReac Type Severity Reaction Status Date / Time No Known Drug Allergies Allergy Verified 05/07/21 20:08 Review of Systems - Constitutional Constitutional: reports: Fatigue, Weakness, Weight loss. denies: Fever, Chills - Eyes Eyes: denies: Pain - Ears, Nose & Throat Ears, Nose & Throat: denies: Ear pain - Cardiovascular Cariovascular: reports: Edema. denies: Irregular heart rate, Chest pain, Lightheadedness, Syncope - Respiratory Respiratory: reports: SOB with exertion. denies: Cough, Wheezing - Gastrointestinal Gastrointestinal: denies: Abdominal pain, Abdominal distention, Constipation, Diarrhea, Black stools, Nausea, Vomiting, Coffee grounds emesis, Reflux/heartburn - Genitourinary Genitourinary: denies: Dysuria, Frequency, Urgency, Hematuria - Musculoskeletal Musculoskeletal: reports: Back pain. denies: Muscle pain - Integumentary Integumentary: denies: Rash, Pruritis, Lesions - Neurological Neurological: denies: Focal weakness - Psychiatric Psychiatric: denies: Depression, Anxiety - Endocrine Endocrine: denies: Polyuria, Polydypsia - Hematologic/Lymphatic Hematologic/Lymphatic: reports: Anemia. denies: Bruising, Petechiae Prior Level of Functionality: He is independent of activities of daily living. He gets around using a walker. Exam - Vital Signs Vital Signs: Vital Signs x48h Temp Pulse Resp BP Pulse Ox 05/07/21 20:41 113 H 17 148/56 H 99 05/07/21 20:03 36.9 C 111 H 16 145/65 H 98 - Physical Exam General Appearance: positive: No acute distress, Alert Eyes Bilateral: positive: PERRL, EOMI ENT: positive: No signs of dehydration Neck: positive: No JVD, Trachea midline Respiratory: negative: Chest non-tender, No respiratory distress, Breath sounds nml, Wheezes, Rales, Rhonchi Cardiovascular: positive: Tachycardia Abdomen: positive: Non-tender, No organomegaly, Nml bowel sounds, No distention. negative: Guarding, Rebound Rectal: positive: Stool - heme POS Back: positive: Nml inspection Skin: positive: Color nml, No rash, Warm, Dry Extremities: positive: Non-tender, Full ROM, Pedal edema (trace) Neurologic/Psychiatric: positive: Oriented x3, Mood/affect nml Conclusion/Plan - Problem List (1) GI bleed Conclusion/Plan: Patient was guaiac positive. Hemoglobin is 5.1. Patient is being transfused 3 units of packed red blood cells. Will monitor H&H. Protonix 40 mg IV daily. Patient's last colonoscopy was 17 [address] ago. General surgery [address]. Alfonso contacted by the ED and was agreeable to see the patient for endoscopy on Monday. Official consult has been placed for general surgery. Qualifiers: GI bleed type/associated pathology: unspecified gastrointestinal hemorrhage type Qualified Code(s): K92.2 - Gastrointestinal hemorrhage, unspecified (2) Anemia Conclusion/Plan: Secondary to GI bleed versus iron deficiency anemia. Patient is being transfused 3 units of packed red blood cells. General surgery consulted for possible endoscopy. Will consider placing patient on supplemental iron upon discharge Qualifiers: Anemia type: iron deficiency Iron deficiency anemia type: chronic blood loss Qualified Code(s): D50.0 - Iron deficiency anemia secondary to blood loss (chronic) (3) Hyperlipidemia Conclusion/Plan: On rosuvastatin (4) Chronic back pain Conclusion/Plan: Oxycodone 5 mg every 4 hours as needed ordered We will hold celecoxib (6) HTN (hypertension) Conclusion/Plan: On lisinopril 10 mg p.o. daily (7) Insulin dependent diabetes mellitus Conclusion/Plan: On Lantus 31 units subcu every afternoon. Other sliding scale insulin and Accu-Cheks. Hold Metformin. - Lab Results Fish Bones: 05/07/21 20:30 05/07/21 20:30 Core Measures - Anticipated LOS I expect patient to be DC'd or transferred within 96 hours.: Yes - DVT/VTE - Prophylaxis VTE/DVT Device ordered at admit?: Yes VTE/DVT Prophylaxis med ordered at admit?: No
[2021-05-07 22:23] LABS: B. PARAPERTUSSIS- RESP PCR PAN NOT DETECTED; B. PERTUSSIS- RESP PCR PANEL NOT DETECTED; C. PNEUMONIAE- RESP PCR PANEL NOT DETECTED; CORONAVIRUS 229E-RESP PCR NOT DETECTED; CORONAVIRUS HKU1-RESP PCR NOT DETECTED; CORONAVIRUS NL63-RESP PCR NOT DETECTED; CORONAVIRUS OC43-RESP PCR NOT DETECTED; HUMAN METAPNEUMOVIRUS NOT DETECTED; INFLUENZA A- RESP PCR PANEL NOT DETECTED; INFLUENZA B - RESP PCR PANEL NOT DETECTED; M. PNEUMONIAE- RESP PCR PANEL NOT DETECTED; PARAINFLUENZA VIRUS 1 NOT DETECTED; PARAINFLUENZA VIRUS 2 NOT DETECTED; PARAINFLUENZA VIRUS 3 NOT DETECTED; PARAINFLUENZA VIRUS 4 NOT DETECTED; RHINOVIRUS/ENTEROVIRUS NOT DETECTED; RSV- RESP PCR PANEL NOT DETECTED; SARS-CoV-2 -RESP PCR PANEL NOT DETECTED
[2021-05-08] MEDS: SODIUM CHLORIDE FLUSH 0.9% 10 ML SYRINGE IVP SCH ×3 (00:05→17:17)
[2021-05-08] MEDS ORDERED: SODIUM CHLORIDE 0.9% 500 ML IV ONE ×2 (00:49→04:22)
[2021-05-08] MEDS: oxyCODONE 5 MG TABLET PO PRN ×6 (00:50→21:05)
[2021-05-08] MEDS: ACETAMINOPHEN 325 MG TABLET PO PRN ×5 (00:59→21:05)
[2021-05-08] MEDS ORDERED: PANTOPRAZOLE 40 MG VIAL IVP SCH (07:00)
[2021-05-08 07:55] LABS: BASOPHILS # (AUTO) 0.1 10^3/uL (0.0-0.1); BASOPHILS % (AUTO) 1.8 %; EOSINOPHILS # (AUTO) 0.4 10^3/uL (0.0-0.7); EOSINOPHILS % (AUTO) 6.9 %; HCT - HEMATOCRIT 25.9 % (42.0-52.0); HGB - HEMOGLOBIN 7.6 g/dL (14.0-18.0); LYMPHOCYTES # (AUTO) 1.6 10^3/uL (1.5-3.5); LYMPHOCYTES % (AUTO) 26.1 %; MEAN CORPUSCULAR HEMOGLOBIN 21.3 pg (27.0-31.0); MEAN CORPUSCULAR HGB CONC 29.3 g/dL (32.0-36.0); MEAN CORPUSCULAR VOLUME 72.8 fL (80.0-94.0); MEAN PLATELET VOLUME 9.9 fL (7.4-11.4); MONOCYTES # (AUTO) 0.6 10^3/uL (0.0-1.0); MONOCYTES % (AUTO) 10.4 %; NEUTROPHILS # (AUTO) 3.2 10^3/uL (1.5-6.6); NEUTROPHILS % (AUTO) 54.1 %; NRBC ABSOLUTE COUNT (AUTO) 0.02 x10^3/uL; NUCLEATED RED BLOOD CELLS AUTO 0.3 /100WBC; PLT - PLATELET COUNT 241 10^3/uL (130-450); RED BLOOD COUNT 3.56 10^6/uL (4.70-6.10); RED CELL DISTRIBUTION WIDTH 24.1 % (12.0-15.0)
[2021-05-08 08:05] LABS: CALCIUM 8.5 mg/dL (8.5-10.3); POTASSIUM 3.4 mmol/L (3.5-5.0)
[2021-05-08] MEDS: INSULIN ASPART 300 UNIT/3 ML PEN SUBQ SCH ×4 (08:10→20:50)
[2021-05-08 08:46] LABS: ALBUMIN 3.1 g/dL (3.2-5.5); BILIRUBIN,DIRECT 0.1 mg/dL (0.1-0.5); BILIRUBIN,TOTAL 0.6 mg/dL (0.2-1.0); TOTAL PROTEIN 5.7 g/dL (6.7-8.2)
--- NOTE | 2021-05-08 10:00 | PHARMACY PROGRESS NOTE ---
- Best Possible Medication History Admit Date and Time: 05/07/212125 Processed by: Pharmacy Medication History completed: Yes Patient Interview: Pt unable to participate Secondary Source(s): Physician records, Pharmacy records, Insurance records As the person ultimately responsible for medication therapy, providers are able to order a medication from an existing home medication list in [facility] via the "Reconcile Routine" prior to Confirmation of that medication by customer support agent. Such practice is discouraged except when the physician, in their clinical judgment, deems that a medical need exists for a medication without regard to previous use.
[2021-05-08] MEDS ORDERED: OXYCODONE HCL PO PRN (10:29)
[2021-05-08] MEDS ORDERED: [UNRECOGNIZED DRUG - OTHER] PO PRN (10:29)
[2021-05-08] MEDS ORDERED: ACETAMINOPHEN PO PRN (10:29)
[2021-05-08] MEDS ORDERED: ALBUTEROL NEB 2.5 MG/3 ML INH PRN (10:32)
[2021-05-08] MEDS: DULoxetine 30 MG CAPSULE PO SCH (11:11)
--- NOTE | 2021-05-08 12:23 | HISTORY & PHYSICAL EXAMINATION ---
Chief Complaint - Chief Complaint Chief Complaint: falls and found to be anemic History of Present Illness - Admitted From Admitted From:: ed - History Obtained From Records Reviewed: yes History obtained from: pt Exam Limitations: none - History of Present Illness HPI Comment/Other: He states he has been falling. Not passing out. He had routine blood work and was found to be very anemic and was told to go to the ED. He has received blood. He lives with his and son. He has had mild trouble swallowing for years. 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 He has been on a PPI medication for years. No recent colon cancer screening. History - Past Medical History Cardiovascular: reports: Hypertension Respiratory: reports: None Endocrine/Autoimmune: reports: Type 2 diabetes HEENT: reports: None Psych: reports: None Musculoskeletal: reports: Chronic back pain Derm: reports: None MRSA Hx?: No Other Past Medical History: Prostate Cancer - Past Surgical History Ortho: reports: Spine surgery Cardiovascular: reports: Coronary stent - Family & Social History Family History: Mother: , Father: Family History Comment/Other: Patient reported that his parents are , his father from heart attack, his mother of diabetes and stroke complication. 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 He lives in [place], [place]. He denies smoking, alcohol and drug history. - POLST Patient has POLST: No POLST Status: Full Code Meds/Allgy - Home Medications Home Medications: Ambulatory Orders Medication Instructions Recorded Confirmed Albuterol Sulfate [Albuterol 2 puffs INH QID PRN 05/01/20 05/08/21 Sulfate Hfa] Cholecalciferol (Vitamin D3) 1,000 unit PO DAILY 05/01/20 05/08/21 [Vitamin D3] Insulin Aspart [Insulin Aspart 12 - 15 unit SQ QDDINNER 05/01/20 05/08/21 Flexpen] Insulin Glargine [Lantus] 25 unit SUBQ QPM 05/01/20 05/01/20 Metformin HCl 1,000 mg PO BIDWM 05/01/20 05/08/21 Pantoprazole Sodium [Protonix] 40 mg PO QDAC 05/01/20 05/08/21 Cyanocobalamin [Vitamin B-12] 1,000 mcg PO DAILY #60 tablet 05/04/20 05/08/21 Gabapentin [Neurontin] 300 mg PO HS 05/07/21 05/07/21 Rosuvastatin Calcium [Crestor] 20 mg PO QPM 05/07/21 05/08/21 Aspirin EC [Ecotrin] 81 mg PO DAILY 05/08/21 05/08/21 DULoxetine [Cymbalta] 90 mg PO DAILY 05/08/21 05/08/21 Furosemide [Lasix] 20 mg PO DAILY 05/08/21 05/08/21 Montelukast [Singulair] 10 mg PO QPM 05/08/21 05/08/21 Oxycodone HCl/Acetaminophen 1 tab PO BID PRN 05/08/21 05/08/21 [Oxycodone-Acetaminophn 7.5-325] SITagliptin [Januvia] 100 mg PO DAILY 05/08/21 05/08/21 Tamsulosin HCl [Flomax] 0.4 mg PO DAILY 05/08/21 05/08/21 lisinopriL [Lisinopril] 10 mg PO DAILY 05/08/21 05/08/21 - Allergies Allergies/Adverse Reactions: Allergies Allergy/AdvReac Type Severity Reaction Status Date / Time No Known Drug Allergies Allergy Verified 05/07/21 20:08 Exam - Vital Signs Vital Signs: Vital Signs x48h Temp Pulse Pulse Resp BP BP BP 05/08/21 11:25 36.5 C 79 20 152/62 H 05/08/21 06:59 36.5 C 79 17 142/58 H 05/08/21 06:21 36.6 C 87 18 138/63 H 05/08/21 04:55 36.9 C 84 17 140/57 H 05/08/21 04:45 37.0 C 90 18 138/78 H 05/08/21 04:38 36.5 C 85 17 142/60 H Pulse Ox 05/08/21 11:25 100 05/08/21 06:59 05/08/21 06:21 99 05/08/21 04:55 05/08/21 04:45 05/08/21 04:38 - Physical Exam General Appearance: positive: No acute distress, Alert Eyes Bilateral: positive: PERRL, EOMI ENT: positive: No signs of dehydration Neck: positive: No JVD Respiratory: positive: No respiratory distress Abdomen: positive: Non-tender, No distention Neurologic/Psychiatric: positive: Oriented x3 Conclusion/Plan - Problem List (1) Anemia Conclusion/Plan: No apparent active bleeding. I do not believe emergency endoscopy is needed over the weekend. He has a benign abdomen. Recommend outpatient colonoscopy, possible upper endoscopy. If can be authorized could do as early as monday or monday. If he has no active bleeding and is doing well, I believe he could be discharged and have elective endoscopy. Follow up in the surgery office as desired. We can also arrange direct scheduling endoscopy with him. Qualifiers: Anemia type: iron deficiency Iron deficiency anemia type: chronic blood loss Qualified Code(s): D50.0 - Iron deficiency anemia secondary to blood loss (chronic) - Lab Results Fish Bones: 05/08/21 07:50 05/08/21 07:50
[2021-05-08 13:26] LABS: HGB - HEMOGLOBIN 7.9 g/dL (14.0-18.0)
[2021-05-08 14:20] LABS: ESTIMATED AVERAGE GLUCOSE 114 mg/dL (70-100); HEMOGLOBIN A1c% 5.6 % (4.27-6.07)
--- NOTE | 2021-05-08 16:56 | PROVIDER PROGRESS NOTE ---
Assessment/Plan - Problem List (1) Anemia due to GI blood loss Assessment/Plan: He presented with a hemoglobin of 5 and tested heme positive guaiac of stool in the ED. He has received 3 units PRBCs and hemoglobin has improved to 8.5 and has plateaued thus far. There have been no bowel movements since being admitted. According to the ER provider note and the admitting hospitalist note, Dr Alfonso said an EGD would to be done tomorrow (Monday), therefore, an EKG for pre-op of conscious sedation was done today. He was seen by General furniture sales consultant Dr. Alfonso this afternoon, who stated that if there is any sign of recurrent bleeding, he will take him for EGD otherwise plan to treat empirically and discharge if the hemoglobin is stable or no signs of active bleeding. And then to plan an outpatient EGD. Will start empiric Protonix 40 mg p.o. twice daily. Stop any NSAIDs and aspirin We will advance his diet. Follow hemoglobin every 8 hours. If Hgb stable will DCh tomorrow This was explained to the patient and he understands and agrees with the plan. (2) Prostate CA Assessment/Plan: As per Hx (3) Insulin dependent diabetes mellitus Assessment/Plan: As his diet was advanced, will start a carb controlled diet and fingerstick checks with insulin sliding scale coverage (4) HTN (hypertension) Assessment/Plan: Will order his meds and place holding parameters since he might drop his blood pressure with such a severe anemia (5) Dorsalgia Assessment/Plan: Chronic low back pain history and he does complain of mild pain currently. Continue with his meds, avoiding NSAIDs and aspirin - Current Meds Current Meds: Current Medications Generic Name Dose Route Start Last Admin Trade Name Freq PRN Reason Stop Dose Admin Acetaminophen 650 mg 05/07/21 21:26 05/08/21 12:43 Acetaminophen 325 Mg Tablet PO 650 mg Q4HR PRN Administration Pain 1 to 4 Duloxetine HCl 90 mg 05/08/21 11:00 05/08/21 11:11 Duloxetine 30 Mg Capsule PO 90 mg DAILY TED Administration Insulin Aspart 1 - 9 unit 05/08/21 08:00 05/08/21 12:05 Insulin Aspart 300 Unit/3 Ml Pen SUBQ Not Given 0800,1200,1700,2100 [facility] Protocol Oxycodone HCl 5 mg 05/08/21 00:10 05/08/21 12:43 Oxycodone 5 Mg Tablet PO 5 mg Q4HR PRN Administration PAIN Sodium Chloride 10 ml 05/08/21 01:00 05/08/21 08:00 Sodium Chloride Flush 0.9% 10 Ml Syringe IVP 10 ml 0100,0900,1700 TED Administration - Lab Result Fish Bone Diagrams: 05/08/21 13:10 05/08/21 07:50 - EKG Results EKG Interpreted Independently: Yes EKG Comparison: Unchanged from prior EKG EKG Findings: Sinus rhythm, rate 75, incomplete right bundle branch block, low voltage in the limb leads. Similar to EKG from 05/01/2020 - Additional Planning My Orders: My Active Orders 05/08/21 10:32 Albuterol 2.5 mg INH QID PRN 05/08/21 11:00 DULoxetine [Cymbalta] 90 mg PO DAILY 05/08/21 Dinner Cardiac Diet [DIET] 05/08/21 21:00 HEMOGLOBIN AND HEMATOCRIT [HEME] Timed Gabapentin [Neurontin] 300 mg PO HS Insulin Glargine [Lantus Solostar] 15 unit SUBQ QPM Montelukast [Singulair] 10 mg PO QPM Pantoprazole [Protonix] 40 mg PO BID 05/09/21 09:00 Tamsulosin [Flomax] 0.4 mg PO DAILY Subjective - Subjective Patient Reports: Other (Feels dry mouth) Objective Vital Signs: Vital Signs - 24 hr 05/07/21 05/07/21 05/07/21 20:03 20:41 21:55 Temperature 36.9 C 36.7 C Heart Rate 111 H 113 H 103 H Heart Rate [ Brachial] Heart Rate [ Monitoring electrodes] Respiratory 16 17 18 Rate Blood Pressure 145/65 H 148/56 H 135/68 H Blood Pressure [Left Brachial artery] Blood Pressure [Right Brachial artery] O2 Saturation 98 99 05/07/21 05/07/21 05/07/21 22:00 22:10 23:10 Temperature 36.9 C 36.9 C 37.2 C Heart Rate 104 H 100 Heart Rate [ Brachial] Heart Rate [ 90 Monitoring electrodes] Respiratory 18 18 22 Rate Blood Pressure 155/61 H 131/52 H Blood Pressure 136/47 H [Left Brachial artery] Blood Pressure [Right Brachial artery] O2 Saturation 98 0805/07/21 05/08/21 23:54 23:55 01:00 Temperature 36.7 C 36.7 C 36.4 C L Heart Rate 93 87 Heart Rate [ Brachial] Heart Rate [ 93 Monitoring electrodes] Respiratory 17 17 17 Rate Blood Pressure 136/55 H 143/54 H Blood Pressure 136/55 H [Left Brachial artery] Blood Pressure [Right Brachial artery] O2 Saturation 100 05/08/21 05/08/21 05/08/21 01:18 01:27 04:08 Temperature 37.0 C 37.0 C 36.5 C Heart Rate 90 91 88 Heart Rate [ Brachial] Heart Rate [ Monitoring electrodes] Respiratory 17 18 17 Rate Blood Pressure 134/56 H 139/56 H 142/60 H Blood Pressure [Left Brachial artery] Blood Pressure [Right Brachial artery] O2 Saturation 05/08/21 05/08/21 05/08/21 04:38 04:45 04:55 Temperature 36.5 C 37.0 C 36.9 C Heart Rate 85 90 84 Heart Rate [ Brachial] Heart Rate [ Monitoring electrodes] Respiratory 17 18 17 Rate Blood Pressure 142/60 H 138/78 H 140/57 H Blood Pressure [Left Brachial artery] Blood Pressure [Right Brachial artery] O2 Saturation 05/08/21 05/08/21 05/08/21 06:21 06:59 11:25 Temperature 36.6 C 36.5 C 36.5 C Heart Rate 79 Heart Rate [ 87 79 Brachial] Heart Rate [ Monitoring electrodes] Respiratory 18 17 20 Rate Blood Pressure 142/58 H Blood Pressure 138/63 H [Left Brachial artery] Blood Pressure 152/62 H [Right Brachial artery] O2 Saturation 99 100 05/08/21 16:00 Temperature 36.5 C Heart Rate Heart Rate [ 75 Brachial] Heart Rate [ Monitoring electrodes] Respiratory 16 Rate Blood Pressure Blood Pressure [Left Brachial artery] Blood Pressure 143/61 H [Right Brachial artery] O2 Saturation 99 Oxygen O2 Source Room air I&O (Last 24 Hrs): Intake and Output Totals x24h 05/06/21 05/07/21 05/08/21 23:59 23:59 23:59 Intake Total 317 1644 Output Total 625 Balance 317 1019 General: Alert, Oriented x3 HEENT: Other (dry mucosa, large hoang and moustache) Neck: Supple, No JVD Neuro: Alert, Non Focal Cardiovascular: Regular rate, No murmurs Respiratory: No respiratory distress, Breath sounds nml Abdomen: Normal bowel sounds, Soft, No tenderness Extremities: No clubbing, No edema - Results Results: Laboratory Results WBC Cancelled 05/08/21 13:10 RBC Cancelled 05/08/21 13:10 Hgb 7.9 g/dL (14.0-18.0) L 05/08/21 13:10 Hct 28.0 % (42.0-52.0) L 05/08/21 13:10 MCV Cancelled 05/08/21 13:10 MCH Cancelled 05/08/21 13:10 MCHC Cancelled 05/08/21 13:10 RDW Cancelled 05/08/21 13:10 Plt Count Cancelled 05/08/21 13:10 MPV Cancelled 05/08/21 13:10 Neut % (Auto) Cancelled 05/08/21 13:10 Lymph % (Auto) Cancelled 05/08/21 13:10 Toombs % (Auto) Cancelled 05/08/21 13:10 Eos % (Auto) Cancelled 05/08/21 13:10 Baso % (Auto) Cancelled 05/08/21 13:10 Neut # (Auto) Cancelled 05/08/21 13:10 Lymph # (Auto) Cancelled 05/08/21 13:10 Toombs # (Auto) Cancelled 05/08/21 13:10 Eos # (Auto) Cancelled 05/08/21 13:10 Baso # (Auto) Cancelled 05/08/21 13:10 Absolute Nucleated RBC Cancelled 05/08/21 13:10 Nucleated RBC % Cancelled 05/08/21 13:10 Manual Slide Review Cancelled 05/08/21 13:10 WBC Morphology Cancelled 05/08/21 13:10 Platelet Estimate Cancelled 05/08/21 13:10 Platelet Morphology Cancelled 05/08/21 13:10 RBC Morph Micro Appear Cancelled 05/08/21 13:10 PT 14.2 secs (9.9-12.6) H 05/07/21 20:30 INR 1.3 (0.8-1.2) H 05/07/21 20:30 Sodium 141 mmol/L (135-145) 05/08/21 07:50 Potassium 3.4 mmol/L (3.5-5.0) L 05/08/21 07:50 Chloride 108 mmol/L (101-111) 05/08/21 07:50 Carbon Dioxide 23 mmol/L (21-32) 05/08/21 07:50 Anion Gap 10.0 (6-13) 05/08/21 07:50 BUN 12 mg/dL (6-20) 05/08/21 07:50 Creatinine 1.0 mg/dL (0.6-1.2) 05/08/21 07:50 Estimated GFR (MDRD) 72 (>89) L 05/08/21 07:50 Glucose 133 mg/dL (70-100) H 05/08/21 07:50 POC Whole Bld Glucose 103 mg/dL (70 - 100) H 05/08/21 16:37 Estimat Average Glucose 114 mg/dL (70-100) H 05/08/21 07:50 Hemoglobin A1c % 5.6 % (4.27-6.07) 05/08/21 07:50 Calcium 8.5 mg/dL (8.5-10.3) 05/08/21 07:50 Iron < 6 ug/dL (45-182) L 05/07/21 20:30 TIBC 435 ug/dL (250-450) 05/07/21 20:30 Transferrin 311 mg/dL (180-329) 05/07/21 20:30 Total Bilirubin 0.6 mg/dL (0.2-1.0) 05/08/21 05:00 Direct Bilirubin 0.1 mg/dL (0.1-0.5) 05/08/21 05:00 AST 15 IU/L (10-42) 05/08/21 05:00 ALT 12 IU/L (10-60) 05/08/21 05:00 Alkaline Phosphatase 59 IU/L (42-121) 05/08/21 05:00 Total Protein 5.7 g/dL (6.7-8.2) L 05/08/21 05:00 Albumin 3.1 g/dL (3.2-5.5) L 05/08/21 05:00 Globulin 2.6 g/dL (2.1-4.2) 05/08/21 05:00 Nasal Adenovirus (PCR) NOT DETECTED 05/07/21 21:30 Nasal B. parapertussis DNA (PCR) NOT DETECTED 05/07/21 21:30 Nasal Coronavir 229E PCR NOT DETECTED 05/07/21 21:30 Nasal Coronavir HKU1 PCR NOT DETECTED 05/07/21 21:30 Nasal Coronavir NL63 PCR NOT DETECTED 08 21:30 Nasal Coronavir OC43 PCR NOT DETECTED 05/07/21 21:30 Nasal Enterovir/Rhinovir PCR NOT DETECTED 05/07/21 21:30 Nasal Influenza B PCR NOT DETECTED 05/07/21 21:30 Nasal Influenza A PCR NOT DETECTED 05/07/21 21:30 Nasal Parainfluen 1 PCR NOT DETECTED 05/07/21 21:30 Nasal Parainfluen 2 PCR NOT DETECTED 05/07/21 21:30 Nasal Parainfluen 3 PCR NOT DETECTED 05/07/21 21:30 Nasal Parainfluen 4 PCR NOT DETECTED 05/07/21 21:30 Nasal RSV (PCR) NOT DETECTED 05/07/21 21:30 Nasal B.pertussis DNA PCR NOT DETECTED 05/07/21 21:30 Nasal C.pneumoniae (PCR) NOT DETECTED 05/07/21 21:30 Robert Human Metapneumo PCR NOT DETECTED 05/07/21 21:30 Nasal M.pneumoniae (PCR) NOT DETECTED 05/07/21 21:30 Nasal SARS-CoV-2 (PCR) NOT DETECTED 05/07/21 21:30 Slides for Path Review Cancelled 05/08/21 13:10 Blood Type B POSITIVE 05/07/21 20:30 Blood Type Recheck B POSITIVE 05/07/21 11:43 Antibody Screen NEGATIVE 05/07/21 20:30 Crossmatch IS Only See Detail 05/07/21 20:30
[2021-05-08] MEDS: PANTOPRAZOLE 40 MG TABLET PO SCH (20:58)
[2021-05-08] MEDS ORDERED: GABAPENTIN 300 MG CAPSULE PO SCH ×2 (21:00)
[2021-05-08] MEDS ORDERED: INSULIN GLARGINE 300 UNIT/3 ML PEN SUBQ SCH ×2 (21:00)
[2021-05-08] MEDS ORDERED: MONTELUKAST 10 MG TABLET PO SCH (21:00)
[2021-05-08 21:01] LABS: HCT - HEMATOCRIT 28.2 % (42.0-52.0); HGB - HEMOGLOBIN 8.1 g/dL (14.0-18.0)
[2021-05-09] MEDS: oxyCODONE 5 MG TABLET PO PRN ×2 (01:01→09:49)
[2021-05-09] MEDS: SODIUM CHLORIDE FLUSH 0.9% 10 ML SYRINGE IVP SCH ×2 (01:01→09:41)
[2021-05-09] MEDS: ACETAMINOPHEN 325 MG TABLET PO PRN ×2 (01:02→09:50)
[2021-05-09 07:35] LABS: BASOPHILS # (AUTO) 0.1 10^3/uL (0.0-0.1); BASOPHILS % (AUTO) 1.4 %; EOSINOPHILS # (AUTO) 0.5 10^3/uL (0.0-0.7); EOSINOPHILS % (AUTO) 7.3 %; HCT - HEMATOCRIT 27.6 % (42.0-52.0); HGB - HEMOGLOBIN 7.9 g/dL (14.0-18.0); LYMPHOCYTES # (AUTO) 1.2 10^3/uL (1.5-3.5); LYMPHOCYTES % (AUTO) 18.4 %; MEAN CORPUSCULAR HGB CONC 28.6 g/dL (32.0-36.0); MEAN CORPUSCULAR VOLUME 73.2 fL (80.0-94.0); MEAN PLATELET VOLUME 9.6 fL (7.4-11.4); MONOCYTES # (AUTO) 0.5 10^3/uL (0.0-1.0); NEUTROPHILS # (AUTO) 4.2 10^3/uL (1.5-6.6); NEUTROPHILS % (AUTO) 64.6 %; PLT - PLATELET COUNT 247 10^3/uL (130-450); RED BLOOD COUNT 3.77 10^6/uL (4.70-6.10); RED CELL DISTRIBUTION WIDTH 24.2 % (12.0-15.0); WHITE BLOOD COUNT 6.5 x10^3/uL (4.8-10.8)
[2021-05-09 07:49] LABS: CALCIUM 8.7 mg/dL (8.5-10.3); POTASSIUM 3.9 mmol/L (3.5-5.0)
[2021-05-09] MEDS: INSULIN ASPART 300 UNIT/3 ML PEN SUBQ SCH ×2 (08:05→11:34)
[2021-05-09] MEDS ORDERED: TAMSULOSIN 0.4 MG CAPSULE PO SCH (09:00)
[2021-05-09] MEDS: DULoxetine 30 MG CAPSULE PO SCH (09:41)
[2021-05-09] MEDS: PANTOPRAZOLE 40 MG TABLET PO SCH (09:41)
--- NOTE | 2021-05-09 10:48 | Discharge Plan ---
Discharge Plan Problem Reviewed?: Yes Disposition: Home, Self Care Condition: Stable Prescriptions: Ferrous Gluconate 324 mg PO DAILY #30 tablet Pantoprazole [Protonix] 40 mg PO BID #60 tablet Diet: Diabetic Activity Restrictions: Activity as Tolerated Shower Restrictions: No Instruction Topics: Ulcer Bleeding Peptic Tx Health Concerns: You were admitted after being found to have severe anemia. You got 3 units of blood transfused. Your hemoglobin has been stable since those 3 units were given. The blood test of your stool shows there is blood in your stool, but because the anemia is stable, the General Surgeon advised that you have scopes of the upper and lower intestines done as an outpatient, not needed emergently on a weekend as an inpatient. You are being discharged to start treatment for a presumed bleeding peptic ulcer, with Protonix twice a day. Also, a new prescription for Iron was ordered. You may resume all your other prehospital medications. You need to see your PCP in the next 2 to 7 days for referral for a colonoscopy and upper endoscopy with a provider. Plan of Treatment: As above. Care Goals: Improvement in symptoms and stabilization are the goals. Assessment: The patient understands and is agreeable with the plan. Additional Instructions or Follow Up instructions: If you have new or worsening symptoms, call your PCP for advice or come to the ER. No Smoking: If you smoke, Please STOP! Call for help. Follow-up with: Amarjit Lawler MD [Primary Care Provider] -
--- NOTE | 2021-05-09 11:23 | DISCHARGE SUMMARY ---
"Discharge Summary Admit Date: 05/07/21 Discharge Date: 05/09/21 Discharging Provider: Dr Katie Lambert Primary Care Provider: Dr Amarjit Lawler Code Status: Attempt Resuscitation Condition at Discharge: Stable Discharge Disposition: 01 Home, Self Care - HPI History of Present Illness: Patient is a 75-year-old white male with a past medical history is significant for chronic back pain, Hypertension, diabetes mellitus type 2, and coronary artery disease, who presented to the ED at the request of his primary care physician's office. He had routine lab work done earlier today which showed a hemoglobin of 5.1. As a result he was advised to present to the ED for blood transfusion. He reports significant dyspnea on exertion and tachycardia. He denies abdominal pain, nausea, vomiting, dizziness, lightheadedness, fever or chills. He reports frequent falls for which he uses a walker to get around. He also reported a 50lb unintentional weight loss in the past year. His last colonoscopy was 17 years ago. His vital signs and exam were unremarkable, except for pallor. In the ED he was noted to be guaiac positive. Transfusions were started. ED provider contacted General Surgery who agreed that endoscopies were indicated. - CONSULTS | PROCEDURES Consultations: Dr Lyle Alfonso - HOSPITAL COURSE Hospital Course: (1) Anemia due to GI blood loss He presented with a hemoglobin of 5 and tested heme positive guaiac of stool in the ED. He received 3 units PRBCs and hemoglobin improved to 8.5 and plateaued. According to the ED provider and admitting Hospitalist notes, the General Surgeon, Dr Alfonso said an EGD would to be done the following morning (Monday), therefore, an EKG for pre-op of conscious sedation was done. However, when seen by General franchise field consultant Dr. Alfonso the following day, it was decided to do endoscopies as an outpatient since there were no sign of active GI bleeding. His diet was advance and he was started on empiric Protonix 40 mg p.o. twice daily and discharged him on this. He was advised to not use any NSAIDs or aspirin. (2) Prostate CA As per his history and he thought his weight loss was from this. (3) Insulin dependent diabetes mellitus His diet was advanced, to a carb controlled diet and fingerstick checks with insulin sliding scale coverage ordered. His A1c came back at 5.6. (4) HTN (hypertension) We ordered his BP meds but placed holding parameters if he had low blood pressure from his severe anemia. (5) Dorsalgia Chronic low back pain history and he did have mild pain at bedrest. We continue with his pain meds, avoiding NSAIDs and aspirin. - ALLERGIES Allergies/Adverse Reactions: Allergies Allergy/AdvReac Type Severity Reaction Status Date / Time No Known Drug Allergies Allergy Verified 05/07/21 20:08 - MEDICATIONS Home Medications: Ambulatory Orders Medication Instructions Recorded Confirmed Albuterol Sulfate [Albuterol 2 puffs INH QID PRN 05/01/20 05/11/21 Sulfate Hfa] Cholecalciferol (Vitamin D3) 1,000 unit PO DAILY 05/01/20 05/11/21 [Vitamin D3] Insulin Aspart [Insulin Aspart 12 - 15 unit SQ QDDINNER 05/01/20 05/11/21 Flexpen] Insulin Glargine [Lantus] 20 unit SUBQ QPM 05/01/20 05/11/21 Metformin HCl 1,000 mg PO BIDWM 05/01/20 05/11/21 Rosuvastatin Calcium [Crestor] 20 mg PO QPM 05/07/21 05/11/21 Aspirin EC [Ecotrin] 81 mg PO DAILY 05/08/21 05/11/21 DULoxetine [Cymbalta] 90 mg PO DAILY 05/08/21 05/11/21 Furosemide [Lasix] 20 mg PO DAILY 05/08/21 05/11/21 Montelukast [Singulair] 10 mg PO QPM 05/08/21 05/11/21 Oxycodone HCl/Acetaminophen 1 tab PO BID PRN 05/08/21 05/11/21 [Oxycodone-Acetaminophn 7.5-325] SITagliptin [Januvia] 100 mg PO DAILY 05/08/21 05/11/21 Tamsulosin HCl [Flomax] 0.4 mg PO DAILY 05/08/21 05/11/21 lisinopriL [Lisinopril] 10 mg PO DAILY 05/08/21 05/11/21 Pantoprazole [Protonix] 40 mg PO BID #60 tablet 05/09/21 05/11/21 - PHYSICAL EXAM AT DISCHARGE General Appearance: positive: No acute distress, Alert Eyes Bilateral: positive: Normal inspection, EOMI ENT: positive: ENT inspection nml, No signs of dehydration Neck: positive: Nml inspection, No JVD Respiratory: positive: No respiratory distress, Breath sounds nml Cardiovascular: positive: Regular rate & rhythm, No murmur Abdomen: positive: Non-tender, Nml bowel sounds, No distention Skin: positive: Pallor Extremities: positive: Non-tender, No pedal edema Neurologic/Psychiatric: positive: Oriented x3 (Non-focal grossly) - LABS Result Diagrams: 05/09/21 07:27 05/09/21 07:27 - FOLLOW UP Follow Up: See PCP per routine and see General Surgeon, Dr Alfonso next week for EGD and ( possible) colonoscopy. - TIME SPENT Time Spent in Discharge (Minutes): 30"
[2021-05-09] MEDS ORDERED: FERROUS GLUCONATE 324 MG TABLET PO SCH (12:00)
--- NOTE | 2021-05-09 12:15 | PROVIDER PROGRESS NOTE ---
Subjective - Prog Note Date Prog Note Date: 05/09/21 - Subjective Pt reports feeling: Improved (Feeling much better after further blood transfusion. No apparent active bleeding. No abdominal complaints) Objective - Vital Signs/Intake & Output Vital Signs: Vital Signs x48h Temp Pulse Resp BP Pulse Ox 05/09/21 07:25 37 C 80 16 142/60 H 96 05/09/21 05:51 36.4 C L 84 18 136/55 H 96 Intake & Output: Intake & Output 05/06/21 05/07/21 05/08/21 05/09/21 23:59 23:59 23:59 23:59 Intake Total 317 1884 240 Output Total 925 550 Balance 317 959 -310 - Objective General Appearance: positive: No acute distress, Alert Eyes Bilateral: positive: PERRL, EOMI, No scleral icterus Respiratory: positive: No respiratory distress Abdomen: positive: Non-tender, No distention Neurologic/Psychiatric: positive: Oriented x3 - Lab Results Fish Bones: 05/09/21 07:27 05/09/21 07:27 Other Labs: Lab Results x24hrs 05/09/21 05/09/21 05/09/21 Range/Units 11:22 07:27 07:27 WBC 6.5 RBC 3.77 L Hgb 7.9 L (14.0-18.0) g/dL Hct 27.6 L (42.0-52.0) % MCV 73.2 L MCH 21.0 L MCHC 28.6 L RDW 24.2 H Plt Count 247 MPV 9.6 Neut % (Auto) Lymph % (Auto) Robertson % (Auto) Eos % (Auto) Baso % (Auto) Neut # (Auto) 4.2 Lymph # (Auto) 1.2 L Robertson # (Auto) 0.5 Eos # (Auto) 0.5 Baso # (Auto) 0.1 Absolute Nucleated RBC 0.00 Nucleated RBC % 0.0 Manual Slide Review WBC Morphology Platelet Estimate Platelet Morphology RBC Morph Micro Appear Sodium 144 (135-145) mmol/L Potassium 3.9 (3.5-5.0) mmol/L Chloride 111 (101-111) mmol/L Carbon Dioxide 23 (21-32) mmol/L Anion Gap 10.0 (6-13) BUN 13 (6-20) mg/dL Creatinine 1.0 (0.6-1.2) mg/dL Estimated GFR (MDRD) 72 L (>89) Glucose 134 H (70-100) mg/dL POC Whole Bld Glucose 131 H (70 - 100) mg/dL Estimat Average Glucose (70-100) mg/dL Hemoglobin A1c % (4.27-6.07) % Calcium 8.7 (8.5-10.3) mg/dL Slides for Path Review 05/09/21 05/08/21 05/08/21 Range/Units 07:21 20:58 20:46 WBC RBC Hgb 8.1 L (14.0-18.0) g/dL Hct 28.2 L (42.0-52.0) % MCV MCH MCHC RDW Plt Count MPV Neut % (Auto) Lymph % (Auto) [place] % (Auto) Eos % (Auto) Baso % (Auto) Neut # (Auto) Lymph # (Auto) [place] # (Auto) Eos # (Auto) Baso # (Auto) Absolute Nucleated RBC Nucleated RBC % Manual Slide Review WBC Morphology Platelet Estimate Platelet Morphology RBC Morph Micro Appear Sodium (135-145) mmol/L Potassium (3.5-5.0) mmol/L Chloride (101-111) mmol/L Carbon Dioxide (21-32) mmol/L Anion Gap (6-13) BUN (6-20) mg/dL Creatinine (0.6-1.2) mg/dL Estimated GFR (MDRD) (>89) Glucose (70-100) mg/dL POC Whole Bld Glucose 125 H 115 H (70 - 100) mg/dL Estimat Average Glucose (70-100) mg/dL Hemoglobin A1c % (4.27-6.07) % Calcium (8.5-10.3) mg/dL Slides for Path Review 05/08/21 05/08/21 05/08/21 Range/Units 16:37 13:10 07:50 WBC Cancelled RBC Cancelled Hgb 7.9 L (14.0-18.0) g/dL Hct 28.0 L (42.0-52.0) % MCV Cancelled MCH Cancelled MCHC Cancelled RDW Cancelled Plt Count Cancelled MPV Cancelled Neut % (Auto) Cancelled Lymph % (Auto) Cancelled Robertson % (Auto) Cancelled Eos % (Auto) Cancelled Baso % (Auto) Cancelled Neut # (Auto) Cancelled Lymph # (Auto) Cancelled Robertson # (Auto) Cancelled Eos # (Auto) Cancelled Baso # (Auto) Cancelled Absolute Nucleated RBC Cancelled Nucleated RBC % Cancelled Manual Slide Review Cancelled WBC Morphology Cancelled Platelet Estimate Cancelled Platelet Morphology Cancelled RBC Morph Micro Appear Cancelled Sodium (135-145) mmol/L Potassium (3.5-5.0) mmol/L Chloride (101-111) mmol/L Carbon Dioxide (21-32) mmol/L Anion Gap (6-13) BUN (6-20) mg/dL Creatinine (0.6-1.2) mg/dL Estimated GFR (MDRD) (>89) Glucose (70-100) mg/dL POC Whole Bld Glucose 103 H (70 - 100) mg/dL Estimat Average Glucose 114 H (70-100) mg/dL Hemoglobin A1c % 5.6 (4.27-6.07) % Calcium (8.5-10.3) mg/dL Slides for Path Review Cancelled Assessment/Plan - Problem List (1) Anemia Impression: He is feeling much improved. OK for D/C. The surgery office will contact him and possibly his primary care provider as needed for authorization to arrange colonoscopy and possible EGD . Plan EGD if colonoscopy is normal. We discussed treatment for his zenkers if his symptoms were to progress. He has had stable mild symptoms for years. Qualifiers: Anemia type: iron deficiency Iron deficiency anemia type: chronic blood loss Qualified Code(s): D50.0 - Iron deficiency anemia secondary to blood loss (chronic)
[2021-05-09 12:17] VITALS: BP 137/58
== END 2021-05-09 14:13 | disposition home or self-care (01) | DRG 812 ==
LOC: ED 20:01 → MS2 21:26
PROVIDERS: ADMIT Internal Medicine; ATTEND Internal Medicine
DX: D50.0 Iron deficiency anemia secondary to blood loss (chronic) (principal); D50.9 Iron deficiency anemia, unspecified; I12.9 Hypertensive chronic kidney disease with stage 1 through stage 4 chronic kidney disease, or unspecified chronic kidney disease; E11.22 Type 2 diabetes mellitus with diabetic chronic kidney disease; N18.9 Chronic kidney disease, unspecified; K92.2 Gastrointestinal hemorrhage, unspecified; G89.29 Other chronic pain; M54.9 Dorsalgia, unspecified; Z20.822 Contact with and (suspected) exposure to COVID-19; E11.9 Type 2 diabetes mellitus without complications; C61 Malignant neoplasm of prostate; I25.10 Atherosclerotic heart disease of native coronary artery without angina pectoris; Z91.81 History of falling; Z95.5 Presence of coronary angioplasty implant and graft; Z79.82 Long term (current) use of aspirin; Z79.4 Long term (current) use of insulin; Z79.891 Long term (current) use of opiate analgesic; Z87.891 Personal history of nicotine dependence
CPT/HCPCS: 0202U; 36415; 36430; 80048; 80061; 80076; 82043; 82272; 82570; 82728; 83036; 83540; 83721; 84460; 84466; 85014; 85018; 85025; 85610; 86850; 86900; 86901; 86920; 93005; 96374; 99283

== ENCOUNTER 2021-05-12 10:02 | Day surgery (SDC) | payer MEDICARE, OTHER ==
[2021-05-12] MEDS ORDERED: LACTATED RINGERS 1,000 ML IV ONE ×2 (10:08→12:53)
--- NOTE | 2021-05-12 11:52 | ANESTHESIA ---
Pre-Anesthesia VS, & Labs - Diagnosis anemia - Procedure colonoscopy and possible EGD Vital Signs: Temp Pulse Resp BP Pulse Ox 37.4 C 86 19 161/63 H 98 05/12/21 10:30 05/12/21 10:30 05/12/21 10:30 05/12/21 10:30 05/12/21 10:30 Height: 5 ft 11 in Weight (kg): 103.8 kg Body Mass Index: 31.8 BMI Classification: Obese - NPO >8 hours - Lab Results Current Lab Results: Laboratory Tests 05/12/21 10:48: POC Whole Bld Glucose 99 Home Medications and Allergies Albuterol Sulfate [Albuterol Sulfate Hfa] 2 puffs INH QID PRN 05/01/20 Cholecalciferol (Vitamin D3) [Vitamin D3] 1,000 unit PO DAILY 05/01/20 Insulin Aspart [Insulin Aspart Flexpen] 12 - 15 unit SQ QDDINNER 05/01/20 Insulin Glargine [Lantus] 20 unit SUBQ QPM 05/01/20 Metformin HCl 1,000 mg PO BIDWM 05/01/20 Rosuvastatin Calcium [Crestor] 20 mg PO QPM 05/07/21 Aspirin EC [Ecotrin] 81 mg PO DAILY 05/08/21 DULoxetine [Cymbalta] 90 mg PO DAILY 05/08/21 Furosemide [Lasix] 20 mg PO DAILY 05/08/21 Montelukast [Singulair] 10 mg PO QPM 05/08/21 Oxycodone HCl/Acetaminophen [Oxycodone-Acetaminophn 7.5-325] 1 tab PO BID PRN 05/08/21 SITagliptin [Januvia] 100 mg PO DAILY 05/08/21 Tamsulosin HCl [Flomax] 0.4 mg PO DAILY 05/08/21 lisinopriL [Lisinopril] 10 mg PO DAILY 05/08/21 Allergies/Adverse Reactions: Allergies Allergy/AdvReac Type Severity Reaction Status Date / Time No Known Drug Allergies Allergy Verified 05/07/21 20:08 Anes History & Medical History - Anesthetic History Anesthesia Complications: reports: No previous complications Family history of Anesthesia Complications: Denies Family history of Malignant Hyperthermia: Denies - Medical History Cardiovascular: reports: Hypertension Pulmonary: reports: None Musculoskeletal: reports: Chronic back pain Endocrine/Autoimmune: reports: Type 2 diabetes Skin: reports: None Smoking Status: Never smoker - Surgical History Cardiothoracic: reports: Coronary stent Orthopedic: reports: Spine surgery Exam General: Alert, Oriented x3, Cooperative Dental: WNL Mouth Openin Fingerbreadth Neck Mobility: Normal Mallampati classification: IV Thyromental Distance: 4-6 cm Respiratory: Lungs clear Cardiovascular: Regular rate Plan Anesthesia Type: Total IV Consent for Procedure(s) Verified and Reviewed: Yes Code Status: Attempt Resuscitation ASA classification: 3-Severe systemic disease Is this case an emergency?: No
[2021-05-12 13:45] VITALS: BP 129/64
--- NOTE | 2021-05-12 15:04 | ANESTHESIA POST OP EVALUATION ---
Anesthesia Post Eval - Post Anesthesia Eval Vitals: Last Vital Signs Temp 37.0 C 05/12/21 13:43 Pulse 74 05/12/21 13:43 Resp 15 05/12/21 13:43 BP 129/64 05/12/21 13:43 Pulse Ox 100 05/12/21 13:43 CV Function Including HR & BP: Stable Pain Control: Satisfactory Nausea & Vomiting: Negative Mental Status: Baseline Respiratory Status: Airway Patent Hydration Status: Satisfactory Anesthesia Complications: None
== END 2021-05-12 10:03 | disposition home or self-care (01) ==
LOC: SDS 10:02
PROVIDERS: ATTEND Surgery
DX: D50.0 Iron deficiency anemia secondary to blood loss (chronic) (principal); I10 Essential (primary) hypertension; I25.10 Atherosclerotic heart disease of native coronary artery without angina pectoris; G47.30 Sleep apnea, unspecified; G89.29 Other chronic pain; M54.9 Dorsalgia, unspecified; E11.9 Type 2 diabetes mellitus without complications; K22.5 Diverticulum of esophagus, acquired; E66.9 Obesity, unspecified; Z68.31 Body mass index [BMI] 31.0-31.9, adult; Z79.4 Long term (current) use of insulin; Z79.82 Long term (current) use of aspirin; Z79.899 Other long term (current) drug therapy; Z95.5 Presence of coronary angioplasty implant and graft; Z91.81 History of falling
CPT/HCPCS: 45378; J7120

== ENCOUNTER 2021-08-02 08:00 | Outpatient (CLI) | payer MEDICARE, OTHER ==
[2021-08-02 11:59] LABS: ESTIMATED AVERAGE GLUCOSE 146 mg/dL (70-100); HEMOGLOBIN A1c% 6.7 % (4.27-6.07)
[2021-08-02 12:12] LABS: ABSOLUTE RETICS # AUTO 0.035 10^6/uL (0.020-0.110); BASOPHILS # (AUTO) 0.1 10^3/uL (0.0-0.1); BASOPHILS % (AUTO) 1.7 %; EOSINOPHILS # (AUTO) 0.4 10^3/uL (0.0-0.7); EOSINOPHILS % (AUTO) 6.8 %; HCT - HEMATOCRIT 30.4 % (42.0-52.0); HGB - HEMOGLOBIN 8.6 g/dL (14.0-18.0); LYMPHOCYTES # (AUTO) 1.7 10^3/uL (1.5-3.5); MEAN CORPUSCULAR HEMOGLOBIN 21.4 pg (27.0-31.0); MEAN CORPUSCULAR HGB CONC 28.3 g/dL (32.0-36.0); MEAN CORPUSCULAR VOLUME 75.8 fL (80.0-94.0); MEAN PLATELET VOLUME 10.4 fL (7.4-11.4); MONOCYTES # (AUTO) 0.5 10^3/uL (0.0-1.0); MONOCYTES % (AUTO) 7.4 %; NEUTROPHILS # (AUTO) 3.8 10^3/uL (1.5-6.6); NEUTROPHILS % (AUTO) 57.9 %; PLT - PLATELET COUNT 246 10^3/uL (130-450); RED BLOOD COUNT 4.01 10^6/uL (4.70-6.10); RED CELL DISTRIBUTION WIDTH 18.3 % (12.0-15.0); RETICULOCYTE COUNT % (AUTO) 0.88 % (0.5-2.3); WHITE BLOOD COUNT 6.5 x10^3/uL (4.8-10.8)
[2021-08-02 12:30] LABS: THYROID STIMULATING HORMONE 6.81 uIU/mL (0.34-5.60)
[2021-08-02 12:36] LABS: FERRITIN 4.1 ng/mL (23.9-336.2)
[2021-08-02 12:42] LABS: CREATININE,URINE 163.7 mg/dL; MICROALBUM/CREATININE RATIO,UR 1.2 ug/mg (<30.0); MICROALBUMIN,URINE 0.2 mg/dL (0-300.0)
[2021-08-02 12:45] LABS: % IRON SATURATION 4 % (20-50); ALBUMIN 3.8 g/dL (3.2-5.5); ALBUMIN/GLOBULIN RATIO 1.4 (1.0-2.2); ALKALINE PHOSPHATASE 66 IU/L (42-121); ALT ALANINE AMINOTRANSFERASE 13 IU/L (10-60); AST ASPARTATE AMINOTRANSFERASE 17 IU/L (10-42); BUN - BLOOD UREA NITROGEN 16 mg/dL (6-20); CALCIUM 9.2 mg/dL (8.5-10.3); CARBON DIOXIDE - CO2 25 mmol/L (21-32); CHLORIDE 105 mmol/L (101-111); CHOL/HDL RATIO 2.6 (<5.0); CHOLESTEROL 117 mg/dL; CREATININE 1.1 mg/dL (0.6-1.2); GFR - MDRD 65 (>89); GLUCOSE 121 mg/dL (70-100); HDL CHOLESTEROL 45 mg/dL; IRON 18 ug/dL (45-182); LDL CHOLESTEROL,CALCULATED 45 mg/dL; POTASSIUM 4.1 mmol/L (3.5-5.0); SODIUM 142 mmol/L (135-145); TOTAL IRON BINDING CAPACITY 445 ug/dL (250-450); TOTAL PROTEIN 6.5 g/dL (6.7-8.2); TRANSFERRIN 318 mg/dL (180-329); TRIGLYCERIDES 137 mg/dL; VLDL CHOLESTEROL 27 mg/dL
[2021-08-02 16:16] LABS: FREE T4 (FREE THYROXINE) 0.86 ng/dL (0.58-1.64)
== END 2021-08-02 23:59 | disposition home or self-care (01) ==
LOC: LAB.WCP 08:00
PROVIDERS: ATTEND Internal Medicine
DX: C61 Malignant neoplasm of prostate (principal); I10 Essential (primary) hypertension; E53.8 Deficiency of other specified B group vitamins; K92.2 Gastrointestinal hemorrhage, unspecified; R94.6 Abnormal results of thyroid function studies; E11.42 Type 2 diabetes mellitus with diabetic polyneuropathy
CPT/HCPCS: 36415; 80053; 80061; 82043; 82570; 82607; 82728; 83036; 83540; 83721; 84153; 84439; 84443; 84466; 85025; 85045

== ENCOUNTER 2023-10-05 14:41 | Outpatient (CLI) | payer MEDICARE, OTHER | END 2023-10-05 14:42 | disposition critical access hospital (66) | LOC: EMS 14:41 | DX: R53.1 Weakness (principal); R26.81 Unsteadiness on feet; R32 Unspecified urinary incontinence; R82.998 Other abnormal findings in urine; S60.221A Contusion of right hand, initial encounter; S80.12XA Contusion of left lower leg, initial encounter; W18.39XA Other fall on same level, initial encounter; Y92.003 Bedroom of unspecified non-institutional (private) residence as the place of occurrence of the external cause; S89.91XD Unspecified injury of right lower leg, subsequent encounter; W18.30XD Fall on same level, unspecified, subsequent encounter; R22.41 Localized swelling, mass and lump, right lower limb; R29.6 Repeated falls | CPT/HCPCS: A0425; A0429 ==

== ENCOUNTER 2023-10-05 15:00 | Emergency (ER) | payer MEDICARE, OTHER ==
[2023-10-05] MEDS ORDERED: SODIUM CHLORIDE 0.9% 1,000 ML IV STA (15:22)
[2023-10-05 15:57] LABS: ALBUMIN 3.9 g/dL (3.2-5.5); ALBUMIN/GLOBULIN RATIO 1.5 (1.0-2.2); BILIRUBIN,TOTAL 1.2 mg/dL (0.2-1.0); CREATININE 1.6 mg/dL (0.6-1.3); POTASSIUM 3.8 mmol/L (3.5-4.5); TOTAL PROTEIN 6.5 g/dL (6.4-8.9)
[2023-10-05 15:58] LABS: BASOPHILS # (AUTO) 0.1 10^3/uL (0.0-0.1); BASOPHILS % (AUTO) 0.5 %; EOSINOPHILS # (AUTO) 0.1 10^3/uL (0.0-0.7); EOSINOPHILS % (AUTO) 0.9 %; HCT - HEMATOCRIT 37.6 % (42.0-52.0); HGB - HEMOGLOBIN 12.3 g/dL (14.0-18.0); LYMPHOCYTES # (AUTO) 1.4 10^3/uL (1.5-3.5); LYMPHOCYTES % (AUTO) 12.1 %; MEAN CORPUSCULAR HEMOGLOBIN 29.8 pg (27.0-31.0); MEAN CORPUSCULAR HGB CONC 32.7 g/dL (32.0-36.0); MEAN PLATELET VOLUME 11.3 fL (7.4-11.4); MONOCYTES # (AUTO) 1.4 10^3/uL (0.0-1.0); MONOCYTES % (AUTO) 12.2 %; NEUTROPHILS # (AUTO) 8.7 10^3/uL (1.5-6.6); NEUTROPHILS % (AUTO) 73.7 %; PLT - PLATELET COUNT 169 10^3/uL (130-450); RED BLOOD COUNT 4.13 10^6/uL (4.70-6.10); RED CELL DISTRIBUTION WIDTH 13.7 % (12.0-15.0); WHITE BLOOD COUNT 11.8 x10^3/uL (4.8-10.8)
[2023-10-05 16:38] LABS: BILIRUBIN,URINE NEGATIVE (NEGATIVE); GLUCOSE, URINE (UA) >=1000 mg/dL (NEGATIVE); KETONES,URINE (UA) NEGATIVE (NEGATIVE); LEUKOCYTE ESTERASE, URINE NEGATIVE (NEGATIVE); NITRITE,URINE NEGATIVE (NEGATIVE); OCCULT BLOOD,URINE NEGATIVE (NEGATIVE); PROTEIN,URINE NEGATIVE (NEGATIVE); UROBILINOGEN,URINE 0.2 (NORMAL) E.U./dL (NORMAL)
[2023-10-05 16:40] LABS: CLARITY,URINE CLEAR (CLEAR)
--- NOTE | 2023-10-05 17:02 | XRAY Report ---
PROCEDURE: Knee 3V RT INDICATIONS: fall/injury TECHNIQUE: 2 views of the knee(s) were acquired. COMPARISON: None. FINDINGS: Bones: No fractures or dislocations. No suspicious bony lesions. Mild tricompartmental knee joint d egeneration. Soft tissues: Trace knee joint effusion. No suspicious soft tissue calcifications or masses. There i s prepatellar soft tissue swelling. Vascular calcifications posterior to knee. IMPRESSION: 1. No acute bony abnormality. If clinical symptoms persist, consider a follow-up exam in 7-10 days or cross-sectional imaging such as CT or MRI. 2. Prepatellar soft tissue swelling. Reviewed by: Azar Dumont MD on 10/05/2023 5:01 PM PST Approved by: Azar Dumont MD on 10/05/2023 5:01 PM PST Station ID: [id number]
[2023-10-05 17:40] VITALS: O2SAT 96
--- NOTE | 2023-10-05 19:11 | ED Physician Documentation ---
History of Present Illness - Stated complaint Stated Complaint: GLF - Chief complaint Chief Complaint: General - History obtained from History obtained from: Patient, Family, EMS - Additonal information Additional information: The pt is brought by ambulance to the ED for CC of mechanical fall x 2 today. He states that the first time, he lost his balance, and the second time, his walker caught as he was going around a corner, and he fell on top of it. He denies specific injury either time. He does have some L knee pain and bruising from a prior fall a week ago, but has been ambulatory on that leg. No head injury or LOC. He has chronic whole body pain that is unchanged from baseline. He has not noticed signs of illness recently. He states he does not drink water, but only coffee and juice. However, he thinks he drinks quite a bit of juice, so feels as though he should be hydrated. No other complaints at this time. Son states he lives with the pt, and helps where necessary, like with meal preparation, but otherwise, tries to let the pt maintain as much independence as possible. PD PAST MEDICAL HISTORY - Past Medical History Cardiovascular: Hypertension, High cholesterol Respiratory: None Endocrine/Autoimmune: Type 2 diabetes GI: GERD HEENT: None Psych: None Musculoskeletal: Chronic back pain Derm: None - Past Surgical History Past Surgical History: Yes Ortho: Spine surgery Cardiovascular: Coronary stent - Present Medications Home Medications: Ambulatory Orders Medication Instructions Recorded Confirmed Albuterol Sulfate [Albuterol 2 puffs INH QID PRN 05/01/20 05/11/21 Sulfate Hfa] Cholecalciferol (Vitamin D3) 1,000 unit PO DAILY 05/01/20 05/11/21 [Vitamin D3] Insulin Aspart [Insulin Aspart 12 - 15 unit SQ QDDINNER 05/01/20 05/11/21 Flexpen] Insulin Glargine [Lantus] 20 unit SUBQ QPM 05/01/20 05/11/21 Metformin HCl 1,000 mg PO BIDWM 05/01/20 05/11/21 Rosuvastatin Calcium [Crestor] 20 mg PO QPM 05/07/21 05/11/21 Aspirin EC [Ecotrin] 81 mg PO DAILY 05/08/21 05/11/21 DULoxetine [Cymbalta] 90 mg PO DAILY 05/08/21 05/11/21 Furosemide [Lasix] 20 mg PO DAILY 05/08/21 05/11/21 Montelukast [Singulair] 10 mg PO QPM 05/08/21 05/11/21 Oxycodone HCl/Acetaminophen 1 tab PO BID PRN 05/08/21 05/11/21 [Oxycodone-Acetaminophn 7.5-325] SITagliptin [Januvia] 100 mg PO DAILY 05/08/21 05/11/21 Tamsulosin HCl [Flomax] 0.4 mg PO DAILY 05/08/21 05/11/21 lisinopriL [Lisinopril] 10 mg PO DAILY 05/08/21 05/11/21 Pantoprazole [Protonix] 40 mg PO BID #60 tablet 05/09/21 05/11/21 - Allergies Allergies/Adverse Reactions: Allergies Allergy/AdvReac Type Severity Reaction Status Date / Time No Known Drug Allergies Allergy Verified 05/07/21 20:08 - Social History Does the pt smoke?: No Smoking Status: Never smoker Does the pt drink ETOH?: No Does the pt have substance abuse?: No - Immunizations Immunizations are current?: No Immunizations: TDAP >10years/unknown - POLST Patient has POLST: No POLST Status: Full Code PD ED PE NORMAL - Vitals Vital signs reviewed: Yes - General General: Alert and oriented X 3, No acute distress, Well developed/nourished - HEENT HEENT: Atraumatic, PERRL, EOMI, Moist mucous membranes - Neck Neck: Supple, no meningeal sign, No bony TTP - Cardiac Cardiac: RRR, No murmur, Strong equal pulses - Respiratory Respiratory: No respiratory distress, Clear bilaterally - Abdomen Abdomen: Soft, Non tender, Non distended - Back Back: No spinal TTP - Derm Derm: Normal color, Warm and dry, No rash - Extremities Extremities: No deformity, Other (Mild BLE edema, symmetrical; L knee ttp over prepatellar area, with subacute ecchymosis tracking posteriorly to popliteal area. Mildly limited ROM of L knee.) - Neuro Neuro: Alert and oriented X 3, lay out inspector 2-12 intact, No motor deficit, No sensory deficit, Normal speech - Psych Psych: Normal mood, Normal affect Results - Vitals Vitals: Oxygen O2 Source Room air - Labs Labs: Laboratory Tests 0110/05/23 10/05/23 15:41 15:41 16:33 WBC 11.8 H RBC 4.13 L Hgb 12.3 L Hct 37.6 L MCV 91.0 MCH 29.8 MCHC 32.7 RDW 13.7 Plt Count 169 MPV 11.3 Neut # (Auto) 8.7 H Lymph # (Auto) 1.4 L [place] # (Auto) 1.4 H Eos # (Auto) 0.1 Baso # (Auto) 0.1 Absolute Nucleated RBC 0.00 Nucleated RBC % 0.0 Sodium 139 Potassium 3.8 Chloride 100 L Carbon Dioxide 31 Anion Gap 8.0 BUN 19 Creatinine 1.6 H Estimated GFR (MDRD) 42 L Glucose 176 H Calcium 9.0 Total Bilirubin 1.2 H AST 15 ALT 15 Alkaline Phosphatase 95 Total Protein 6.5 Albumin 3.9 Globulin 2.6 Albumin/Globulin Ratio 1.5 Lipase 25 Urine Color YELLOW Urine Clarity CLEAR Urine pH 6.0 Ur Specific Whitt 1.010 Urine Protein NEGATIVE Urine Glucose (UA) >=1000 H Urine Ketones NEGATIVE Urine Occult Blood NEGATIVE Urine Nitrite NEGATIVE Urine Bilirubin NEGATIVE Urine Urobilinogen 0.2 (NORMAL) Ur Leukocyte Esterase NEGATIVE Ur Microscopic Review NOT INDICATED Urine Culture Comments NOT INDICATED - Rads (name of study) CXR Relevant Findings:: Final report received, See rad report (neg) L knee XR Relevant Findings:: Final report received, See rad report (neg; Mild STS) PD Medical Decision Making - ED course Complexity details: reviewed results, re-evaluated patient, considered differential, d/w patient, d/w family ED course: The pt was treated symptomatically with IV fluids, and worked up with labs, CXR, and XR L knee. Work-up revealed mild renal insufficiency and a moderately elevated glucose at 176. I d/w pt that he should monitor his sugars at home to see how they are doing regularly, and should replace most of the juice he is drinking with water. We have discussed that the pt will need to follow closely with his PCP. The pt ambulated without difficulty with his walker in the ED, and I felt he was stable for d/c home. We have discussed the usual indications for return. Departure - Departure Disposition: Home, Self Care Clinical Impression: Dehydration, Weakness Condition: Stable Instructions: ED Dehydration Comments: Your laboratory studies overall look good. Your knee x-ray does not show any broken bones, and your chest x-ray is normal. You have done very well walking in our emergency department. You are most likely dehydrated and have been rehydrated with IV fluids today. Please be sure you are getting plenty of fluids to drink at home. You should get 8 to 10 cups of water per day. If you are drinking a lot of juice, drink at least 6 cups of water in addition to the cups of juice. Please follow-up with your primary doctor as needed. Forms: PCP List Discharge Date/Time: 10/05/23 19:41
[2023-10-05 19:49] VITALS: BP 163/81
--- NOTE | 2023-10-06 07:57 | XRAY Report ---
PROCEDURE: Chest 1V INDICATIONS: weak TECHNIQUE: One view of the chest was acquired. COMPARISON: CT chest, 05/06/2016. FINDINGS: Surgical changes and devices: None. Lungs and pleura: No pleural effusions or pneumothorax. Mild left hemidiaphragm elevation and left b asilar atelectasis. Mediastinum: Mediastinal contours appear normal. Heart size is normal. Bones and chest wall: No suspicious bony lesions. Overlying soft tissues appear unremarkable. IMPRESSION: No acute cardiopulmonary process. Reviewed by: Azar Dumont MD on 10/06/2023 7:56 AM PST Approved by: Azar Dumont MD on 10/06/2023 7:56 AM PST Station ID: [id number]
== END 2023-10-05 19:41 | disposition home or self-care (01) ==
LOC: EDUNIT# → ED 15:00
DX: E86.0 Dehydration (principal); R53.1 Weakness; E11.9 Type 2 diabetes mellitus without complications; Z79.4 Long term (current) use of insulin; Z79.84 Long term (current) use of oral hypoglycemic drugs; I10 Essential (primary) hypertension; W19.XXXA Unspecified fall, initial encounter
CPT/HCPCS: 36415; 80053; 81001; 81003; 83690; 85025; 87086; 96360; 96361; 99283

== ENCOUNTER 2024-04-14 14:44 | Outpatient (CLI) | payer MEDICARE, OTHER | END 2024-04-14 23:59 | disposition critical access hospital (66) | LOC: EMS 14:44 | DX: R53.1 Weakness (principal) | CPT/HCPCS: A0425; A0429 ==

== ENCOUNTER 2024-04-14 15:02 | Emergency (ER) | payer MEDICARE, OTHER ==
--- NOTE | 2024-04-14 15:28 | ED Physician Documentation ---
History of Present Illness - Stated complaint Stated Complaint: WEAKNESS - Chief complaint Chief Complaint: General - Additonal information Additional information: .Patient is an 78-year-old male past medical history remarkable for hypertensi on, hyperlipidemia and type 2 diabetes on insulin, history of reflux, CKD and prostate cancer. Patient presents to the emergency department after feeling weak at home and fell transferring from his recliner to his walker. Patient notes he woke up this morning feeling more weak his son had to help him make breakfast and assist him out of his bed. He notes this is abnormal for him. Patient lives with his son who helps provide care for him patient denies any unilateral weakness no confusion he is ANO x 3. He denies any injuries after his fall did not hit his head or lose consciousness. Patient denies any specific pain from his fall. He denies any fevers or chills nausea or vomiting. He notes he has had some more diarrhea this week recently on the he was started on amoxicillin for recent dental procedure he is edentulous. PD PAST MEDICAL HISTORY - Past Medical History Cardiovascular: Hypertension, High cholesterol Respiratory: None Endocrine/Autoimmune: Type 2 diabetes GI: GERD HEENT: None Psych: None Musculoskeletal: Chronic back pain Derm: None - Past Surgical History Past Surgical History: Yes Ortho: Spine surgery Cardiovascular: Coronary stent - Present Medications Home Medications: Ambulatory Orders Medication Instructions Recorded Confirmed Albuterol Sulfate [Albuterol 2 puffs INH QID PRN 05/01/20 05/11/21 Sulfate Hfa] Cholecalciferol (Vitamin D3) 1,000 unit PO DAILY 05/01/20 05/11/21 [Vitamin D3] Insulin Aspart [Insulin Aspart 12 - 15 unit SQ QDDINNER 05/01/20 05/11/21 Flexpen] Insulin Glargine [Lantus] 20 unit SUBQ QPM 05/01/20 05/11/21 Metformin HCl 1,000 mg PO BIDWM 05/01/20 05/11/21 Rosuvastatin Calcium [Crestor] 20 mg PO QPM 05/07/21 05/11/21 Aspirin EC [Ecotrin] 81 mg PO DAILY 05/08/21 05/11/21 DULoxetine [Cymbalta] 90 mg PO DAILY 05/08/21 05/11/21 Furosemide [Lasix] 20 mg PO DAILY 05/08/21 05/11/21 Montelukast [Singulair] 10 mg PO QPM 05/08/21 05/11/21 Oxycodone HCl/Acetaminophen 1 tab PO BID PRN 05/08/21 05/11/21 [Oxycodone-Acetaminophn 7.5-325] SITagliptin [Januvia] 100 mg PO DAILY 05/08/21 05/11/21 Tamsulosin HCl [Flomax] 0.4 mg PO DAILY 05/08/21 05/11/21 lisinopriL [Lisinopril] 10 mg PO DAILY 05/08/21 05/11/21 Pantoprazole [Protonix] 40 mg PO BID #60 tablet 05/09/21 05/11/21 Lactobacillus Acidophilus 1 each PO BID 5 Days #10 cap 04/14/24 - Allergies Allergies/Adverse Reactions: Allergies Allergy/AdvReac Type Severity Reaction Status Date / Time No Known Drug Allergies Allergy Verified 04/14/24 15:16 - Social History Does the pt smoke?: No Smoking Status: Never smoker Does the pt drink ETOH?: No Does the pt have substance abuse?: No - Immunizations Immunizations are current?: No Immunizations: TDAP >10years/unknown - POLST Patient has POLST: No POLST Status: Full Code Results - Vitals Vitals: Vital Signs - 24 hr 04/14/24 04/14/24 15:11 20:56 Temperature 36.3 C L 36 C L Heart Rate 78 81 Respiratory 16 16 Rate Blood Pressure 145/53 H 144/68 H O2 Saturation 94 99 Oxygen O2 Source Room air - Labs Labs: Laboratory Tests 04/14/24 04/14/24 04/14/24 15:48 15:48 15:48 WBC 11.4 H RBC 3.75 L Hgb 11.3 L Hct 33.7 L MCV 89.9 MCH 30.1 MCHC 33.5 RDW 15.7 H Plt Count 137 MPV 10.2 Neut # (Auto) 8.7 H Lymph # (Auto) 1.1 L [place] # (Auto) 1.4 H Eos # (Auto) 0.1 Baso # (Auto) 0.0 Absolute Nucleated RBC 0.00 Nucleated RBC % 0.0 Sodium 140 Potassium 3.8 Chloride 105 Carbon Dioxide 27 Anion Gap 8.0 BUN 9 Creatinine 1.4 H Estimated GFR (MDRD) 49 L Glucose 136 H POC Whole Bld Glucose Calcium 9.1 Magnesium 1.7 Total Bilirubin 0.8 AST 21 ALT 18 Alkaline Phosphatase 94 Troponin I High Sens 8.8 Total Protein 6.0 L Albumin 3.7 Globulin 2.3 Albumin/Globulin Ratio 1.6 Lipase 21 Urine Color Urine Clarity Urine pH Ur Specific [place] Urine Protein Urine Glucose (UA) Urine Ketones Urine Occult Blood Urine Nitrite Urine Bilirubin Urine Urobilinogen Ur Leukocyte Esterase Ur Microscopic Review Urine Culture Comments 04/14/24 04/14/24 15:50 16:25 WBC RBC Hgb Hct MCV MCH MCHC RDW Plt Count MPV Neut # (Auto) Lymph # (Auto) [place] # (Auto) Eos # (Auto) Baso # (Auto) Absolute Nucleated RBC Nucleated RBC % Sodium Potassium Chloride Carbon Dioxide Anion Gap BUN Creatinine Estimated GFR (MDRD) Glucose POC Whole Bld Glucose 133 H Calcium Magnesium Total Bilirubin AST ALT Alkaline Phosphatase Troponin I High Sens Total Protein Albumin Globulin Albumin/Globulin Ratio Lipase Urine Color YELLOW Urine Clarity CLEAR Urine pH 6.5 Ur Specific [place] 1.010 Urine Protein NEGATIVE Urine Glucose (UA) >=1000 H Urine Ketones NEGATIVE Urine Occult Blood NEGATIVE Urine Nitrite NEGATIVE Urine Bilirubin NEGATIVE Urine Urobilinogen 0.2 (NORMAL) Ur Leukocyte Esterase NEGATIVE Ur Microscopic Review NOT INDICATED Urine Culture Comments NOT INDICATED PD Medical Decision Making - ED course ED course: Patient is an 78-year-old male presenting to the emergency department after falling at home denies hitting his head or losing consciousness. He notes he was transferring from his bed to his walker. Patient states he recently started on some antibiotics for dental infection and has had increased diarrhea denies any nausea or vomiting notes that today was his first day where he felt weak was feeling fine yesterday has been eating and drinking normally otherwise. No black or bloody stools no fevers or chills. Vitals on arrival are stable patient is nontachycardic afebrile. EKG here in the emergency department shows normal sinus rhythm troponin is within normal range. Additionally no significant signs of anemia and CMP shows no significant ALEJANDRA or electrolyte abnormality. Mild leukocytosis pending urine and chest x-ray here in the emergency department. Chest x-ray results reviewed independently by ED provider and shows no acute cardiopulmonary abnormality. Additionally urine analysis shows no significant UTI findings. No significant ketones in the urine and given no significant electrolyte abnormalities patient is tolerating p.o. well here in the emergency department no need for IV fluids at this time however suspect dehydration and diarrhea could have caused patient to feel more weak recently. Will send patient home with probiotic to help with symptoms and he should follow-up with his PCP in outpatient setting. Patient was ambulated here in the emergency department and did well according to nursing staff. Patient feels safe to go home he lives with his son who will monitor him overnight. Strict return precautions given patient will follow-up in outpatient setting. Departure - Departure Disposition: Home, Self Care Clinical Impression: Muscle weakness, Diarrhea Condition: Good Prescriptions: Lactobacillus Acidophilus 1 each PO BID 5 Days #10 cap Comments: You were seen here in the emergency department your workup show symptoms could be secondary to dehydration drink lots of fluids when you return home follow-up with PCP in outpatient setting I started you on a probiotic as you are on an antibiotic and having some mild diarrhea return with any worsening abdominal pain nausea vomiting fevers or any other new or worsening symptoms. Forms: PCP List Discharge Date/Time: 04/14/24 20:56
[2024-04-14 15:57] LABS: BASOPHILS % (AUTO) 0.4 %; EOSINOPHILS # (AUTO) 0.1 10^3/uL (0.0-0.7); EOSINOPHILS % (AUTO) 0.8 %; HCT - HEMATOCRIT 33.7 % (42.0-52.0); HGB - HEMOGLOBIN 11.3 g/dL (14.0-18.0); LYMPHOCYTES # (AUTO) 1.1 10^3/uL (1.5-3.5); LYMPHOCYTES % (AUTO) 9.6 %; MEAN CORPUSCULAR HEMOGLOBIN 30.1 pg (27.0-31.0); MEAN CORPUSCULAR HGB CONC 33.5 g/dL (32.0-36.0); MEAN CORPUSCULAR VOLUME 89.9 fL (80.0-94.0); MEAN PLATELET VOLUME 10.2 fL (7.4-11.4); MONOCYTES # (AUTO) 1.4 10^3/uL (0.0-1.0); MONOCYTES % (AUTO) 12.5 %; NEUTROPHILS # (AUTO) 8.7 10^3/uL (1.5-6.6); NEUTROPHILS % (AUTO) 76.3 %; PLT - PLATELET COUNT 137 10^3/uL (130-450); RED BLOOD COUNT 3.75 10^6/uL (4.70-6.10); RED CELL DISTRIBUTION WIDTH 15.7 % (12.0-15.0); WHITE BLOOD COUNT 11.4 x10^3/uL (4.8-10.8)
[2024-04-14 16:30] LABS: BILIRUBIN,URINE NEGATIVE (NEGATIVE); GLUCOSE, URINE (UA) >=1000 mg/dL (NEGATIVE); KETONES,URINE (UA) NEGATIVE (NEGATIVE); LEUKOCYTE ESTERASE, URINE NEGATIVE (NEGATIVE); NITRITE,URINE NEGATIVE (NEGATIVE); OCCULT BLOOD,URINE NEGATIVE (NEGATIVE); PH,URINE 6.5 PH (5.0-7.5); PROTEIN,URINE NEGATIVE (NEGATIVE); UROBILINOGEN,URINE 0.2 (NORMAL) E.U./dL (NORMAL)
[2024-04-14 16:31] LABS: CLARITY,URINE CLEAR (CLEAR)
[2024-04-14 16:56] LABS: ALBUMIN 3.7 g/dL (3.2-5.5); ALBUMIN/GLOBULIN RATIO 1.6 (1.0-2.2); BILIRUBIN,TOTAL 0.8 mg/dL (0.2-1.0); CALCIUM 9.1 mg/dL (8.5-10.3); CREATININE 1.4 mg/dL (0.6-1.3); MAGNESIUM 1.7 mg/dL (1.7-2.3); POTASSIUM 3.8 mmol/L (3.5-4.5)
--- NOTE | 2024-04-14 18:23 | XRAY Report ---
PROCEDURE: Chest 1V INDICATIONS: weakness TECHNIQUE: One view of the chest was acquired. COMPARISON: None. FINDINGS: Surgical changes and devices: None. Lungs and pleura: No pleural effusions or pneumothorax. Lungs are clear. Mediastinum: Mediastinal contours appear normal. Heart size is normal. Bones and chest wall: No suspicious bony lesions. Overlying soft tissues appear unremarkable. IMPRESSION: No acute cardiopulmonary process. Reviewed by: David Owens MD on 04/14/2024 6:22 PM PDT Approved by: David Owens MD on 04/14/2024 6:22 PM PDT Station ID: [id number]
[2024-04-14 21:01] VITALS: BP 144/68; O2SAT 99
== END 2024-04-14 20:56 | disposition home or self-care (01) ==
LOC: ED 15:02
DX: R53.1 Weakness (principal); R19.7 Diarrhea, unspecified; I12.9 Hypertensive chronic kidney disease with stage 1 through stage 4 chronic kidney disease, or unspecified chronic kidney disease; E11.22 Type 2 diabetes mellitus with diabetic chronic kidney disease; N18.9 Chronic kidney disease, unspecified; Z79.4 Long term (current) use of insulin; E78.5 Hyperlipidemia, unspecified; Z85.46 Personal history of malignant neoplasm of prostate; Z79.84 Long term (current) use of oral hypoglycemic drugs
CPT/HCPCS: 36415; 80053; 81001; 81003; 83690; 83735; 84484; 85025; 87086; 93005; 99284

== ENCOUNTER 2024-05-04 07:52 | Outpatient (CLI) | payer MEDICARE, OTHER | END 2024-05-04 23:59 | disposition EMS.NT | LOC: EMS 07:52 | DX: Z03.89 Encounter for observation for other suspected diseases and conditions ruled out (principal) ==